=== PATIENT | male | born 1940 | race Caucasian/White ===

== ENCOUNTER 2021-11-01 15:00 | Inpatient (IN) ==
[2021-11-01] MEDS ORDERED: OPTIRAY 300 500mL IV ONE (15:18)
[2021-11-01 15:21] LABS: Basophils # (auto) 0.05 K/uL (0-0.2); Basophils % (auto) 0.6 %; Eosinophils # (auto) 0.41 K/uL (0-0.50); Eosinophils % (auto) 4.5 %; Hematocrit (blood only) 45.8 % (40.1-51.0); Hemoglobin 14.7 g/dl (14.0-18.0); Immature Granulocytes # (auto) 0.03 K/uL (0.00-0.02); Immature Granulocytes % (auto) 0.3 %; Lymphocytes # (auto) 0.95 K/uL (1.2-3.4); Lymphocytes % (auto) 10.5 %; Mean Corpuscular Hemoglobin 31.5 pg (25.0-34.0); Mean Corpuscular Hgb Conc 32.1 g/dL (32.0-36.0); Mean Corpuscular Volume 98.1 fL (80.0-100.0); Mean Platelet Volume 10.4 fL (9.4-12.4); Monocytes # (auto) 0.74 K/uL (0.24-0.82); Monocytes % (auto) 8.1 %; Platelet Count 341 K/uL (130-400); RDW Coefficient of Variation 14.3 % (11.5-14.5); RDW Standard Deviation 51.8 fL (36.4-46.3); Red Blood Count 4.67 M/uL (4.63-6.08); White Blood Count 9.08 K/ul (4.8-10.8)
--- NOTE | 2021-11-01 15:27 | Emergency Department Note ---
History of Present Illness General Chief complaint: Stroke/CVA Symptoms Stated complaint: neuro symptoms Time Seen by Provider: 11/01/21 15:04 History of Present Illness Provider complaint: Weakness Onset (ago): hour(s) (2.5) Location: upper extremity and right 81-year-old male presents emergency department for weakness. Her the EMS staff and son the patient started having weakness in his right upper extremity 2.5 hours ago. No falls. Patient is on Coumadin. The patient was vomiting yesterday. No headache. Home Medications Medication Instructions Recorded Confirmed Type atorvastatin 20 mg tablet 20 mg PO PM 03/17/18 11/01/21 History docusate sodium 100 mg capsule 100 mg PO BID PRN Constipation 03/17/18 11/01/21 History ([facility]ite) omega 4-hjq-oxw-fish oil 1,000 mg 1 cap PO DAILY 03/17/18 11/01/21 History (120 mg-180 mg) capsule (Fish Oil) polyethylene glycol 3350 17 gram 17 g PO DAILY PRN Constipation 03/17/18 11/01/21 History oral powder packet (Miralax) warfarin 5 mg tablet 5 mg PO UD 03/17/18 11/01/21 History amlodipine 10 mg tablet 10 mg PO DAILY 11/01/21 11/01/21 History losartan 50 mg tablet 50 mg PO DAILY 11/01/21 11/01/21 History Allergies Allergy/AdvReac Type Severity Reaction Status Date / Time No Known Allergies Allergy Verified 11/01/21 16:02 Past Med/Surg History Medical History (Updated 11/01/21 @ 21:56 by Raffy Mckinney) Aortic aneurysm HAS BEEN MONITORED FOR PAST 5 YEARS. PT ALSO FOLLOWS WITH [facility]. Atrial fibrillation MOST RECENT EKG 02/22/18 (SEE EMR) History of intestinal obstruction 2010. S/P BOWEL RESECTION. 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 [employer] Required: No Beliefs That Will Affect Care: None Current Living Situation: Spouse Current Living Situation Comment: with Feels Safe at Home: Yes Safety Concerns: Feels Safe At This Time Assistive Devices: Glasses and Hearing Aid - Bilateral Review of Systems A total of 10 systems reviewed and were otherwise negative Physical Exam Vital Signs Vital Signs - 24 hr 11/01/21 15:08 11/01/21 15:44 11/01/21 15:59 Temperature 36.7 C 36.5 C Temperature Source Oral Oral Pulse Rate 60 Pulse Rate [Finger] 56 L 55 L Pulse Rate from SpO2 Sensor Pulse Rhythm Regular Pulse Strength Normal Respiratory Rate 16 18 18 Respiratory Effort / Characteristics Non-Labored Respiratory Depth Normal Respiratory Pattern Regular Blood Pressure 153/67 H Blood Pressure [Left Arm] 184/85 H 162/76 H Blood Pressure Mean 95 Blood Pressure Mean [Left Arm] 118 104 Blood Pressure Position Lying Pulse Oximetry 97 98 98 Oxygen Delivery Method Room Air Room Air Room Air Sepsis Recent Fever Within 48 Hours No Sepsis New/Unexplained Change in Mental Status No Sepsis Action Taken by Nursing No Action Required 11/01/21 15:27 11/01/21 15:27 11/01/21 15:30 Temperature Temperature Source Pulse Rate Pulse Rate [Finger] Pulse Rate from SpO2 Sensor 54 L Pulse Rhythm Pulse Strength Respiratory Rate Respiratory Effort / Characteristics Respiratory Depth Respiratory Pattern Blood Pressure 189/84 H 184/85 H Blood Pressure [Left Arm] Blood Pressure Mean 119 118 Blood Pressure Mean [Left Arm] Blood Pressure Position Pulse Oximetry 98 Oxygen Delivery Method Sepsis Recent Fever Within 48 Hours Sepsis New/Unexplained Change in Mental Status Sepsis Action Taken by Nursing 11/01/21 15:30 11/01/21 15:40 11/01/21 15:50 Temperature Temperature Source Pulse Rate 54 L 52 L 49 L Pulse Rate [Finger] Pulse Rate from SpO2 Sensor 53 L 50 L 53 L Pulse Rhythm Pulse Strength Respiratory Rate Respiratory Effort / Characteristics Respiratory Depth Respiratory Pattern Blood Pressure Blood Pressure [Left Arm] Blood Pressure Mean Blood Pressure Mean [Left Arm] Blood Pressure Position Pulse Oximetry 98 98 98 Oxygen Delivery Method Sepsis Recent Fever Within 48 Hours Sepsis New/Unexplained Change in Mental Status Sepsis Action Taken by Nursing 11/01/21 15:59 11/01/21 15:59 11/01/21 16:00 Temperature Temperature Source Pulse Rate 50 L Pulse Rate [Finger] Pulse Rate from SpO2 Sensor Pulse Rhythm Pulse Strength Respiratory Rate Respiratory Effort / Characteristics Respiratory Depth Respiratory Pattern Blood Pressure 162/76 H 158/69 H Blood Pressure [Left Arm] Blood Pressure Mean 104 98 Blood Pressure Mean [Left Arm] Blood Pressure Position Pulse Oximetry Oxygen Delivery Method Sepsis Recent Fever Within 48 Hours Sepsis New/Unexplained Change in Mental Status Sepsis Action Taken by Nursing 11/01/21 16:00 11/01/21 16:10 11/01/21 16:20 Temperature Temperature Source Pulse Rate 55 L 44 L 44 L Pulse Rate [Finger] Pulse Rate from SpO2 Sensor 54 L 48 L 48 L Pulse Rhythm Pulse Strength Respiratory Rate 24 Respiratory Effort / Characteristics Respiratory Depth Respiratory Pattern Blood Pressure Blood Pressure [Left Arm] Blood Pressure Mean Blood Pressure Mean [Left Arm] Blood Pressure Position Pulse Oximetry 98 98 98 Oxygen Delivery Method Sepsis Recent Fever Within 48 Hours Sepsis New/Unexplained Change in Mental Status Sepsis Action Taken by Nursing 11/01/21 16:30 11/01/21 16:31 11/01/21 16:31 Temperature Temperature Source Pulse Rate 46 L 45 L Pulse Rate [Finger] Pulse Rate from SpO2 Sensor 44 L 47 L Pulse Rhythm Pulse Strength Respiratory Rate 25 H 20 Respiratory Effort / Characteristics Respiratory Depth Respiratory Pattern Blood Pressure 152/73 H Blood Pressure [Left Arm] Blood Pressure Mean 99 Blood Pressure Mean [Left Arm] Blood Pressure Position Pulse Oximetry 97 99 Oxygen Delivery Method Sepsis Recent Fever Within 48 Hours Sepsis New/Unexplained Change in Mental Status Sepsis Action Taken by Nursing Physical Exam GENERAL: She is oriented to person, place, and time. She appears well-developed and well-nourished. She does not appear distressed. HENT: Exam performed. -Head: Normocephalic and atraumatic. -Right Ear: External ear normal. No mastoid tenderness. -Left Ear: External ear normal. No mastoid tenderness. -Mouth/Throat: The oropharynx is clear and moist. No trismus in the jaw. No dental abscesses or uvula swelling. No oropharyngeal exudate or tonsillar absces ses. EYES: Conjunctivae and EOM are normal. Pupils are equal, round, and reactive to light. Right eye exhibits no discharge. Left eye exhibits no discharge. No scleral icterus. NECK: Normal range of motion. Neck supple. No JVD present. No spinous process tenderness present. No carotid bruit present. No rigidity. No tracheal deviation and normal range of motion present. No Brudzinski's sign and no Kernig's sign noted. CV: Normal rate, regular rhythm, normal heart sounds and intact distal pulses. There is no peripheral edema. Palpable radial pulses bue. PULM/CHEST: Effort normal and breath sounds normal. No respiratory distress. No stridor. She has no wheezes. She has no rales. -Chest Wall: She exhibits no tenderness. ABD: The abdomen is soft. Bowel sounds are normal. She has no distension. No mass is present. There is no tenderness. There is no rebound, no guarding, no Bee's sign and no tenderness at McBurney's point. Rovsig negative MUSC/SKEL: Normal range of motion. There is no peripheral edema, tenderness or deformity. LYMPH: No cervical adenopathy. NEURO:NIHSS: (5b: 3, 7:1, 10: 1) Course Course 1504: The patient was evaluated in room B10. A complete history and physical exam was performed Cardiac monitoring: An order was placed for continuous cardiac monitoring. The monitor shows a rate of 60 with sinus rhythm Stroke called on the patient. 1537: Discussed with Dr. Eric Awad telestroke will evaluate the patient. 1555: CT of the head CTA angio of head and neck negative. Patient's p [id number] INR 3. Lab INR 2.6. Discussed with Dr. Reyes who states she does not recommend vitamin K or TNK in this patient to be admitted. Administered Medications Atorvastatin Calcium (Atorvastatin 20 Mg Tab) 20 mg PO PM JORDAN Stop: 12/01/21 20:59 Last Admin: 11/01/21 20:46 Dose: 20 mg Documented By: QG Folic Acid 1 mg/ Syringe 10 mls @ 5 mls/min IV QAM JORDAN Stop: 12/01/21 18:59 Last Admin: 11/01/21 20:43 Dose: 5 mls/min Documented By: QG Thiamine HCl 100 mg/ Syringe 10 mls @ 2 mls/min IV QAM JORDAN Stop: 12/01/21 19:04 Last Admin: 11/01/21 20:42 Dose: 2 mls/min Documented By: QG Warfarin Sodium (Warfarin Sod 5 Mg Tab) 5 mg PO Q24H JORDAN Stop: 12/01/21 18:59 Last Admin: 11/01/21 20:44 Dose: 5 mg Documented By: SHERRY Medical Decision Making Laboratory Data Result diagrams: 11/01/21 15:11 11/01/21 15:11 Lab Results 11/01/21 11/01/21 11/01/21 Range/Units 15:09 15:11 15:11 WBC 9.08 (4.8-10.8) K/ul RBC 4.67 (4.63-6.08) M/uL Hgb 14.7 (14.0-18.0) g/dl Hct 45.8 (40.1-51.0) % MCV 98.1 (80.0-100.0) fL MCH 31.5 (25.0-34.0) pg MCHC 32.1 (32.0-36.0) g/dL RDW Std Deviation 51.8 H (36.4-46.3) fL RDW Coeff of Joo 14.3 (11.5-14.5) % Plt Count 341 (130-400) K/uL MPV 10.4 (9.4-12.4) fL Immature Gran % (Auto) 0.3 % Neut % (Auto) 76.0 % Lymph % (Auto) 10.5 % Webster % (Auto) 8.1 % Eos % (Auto) 4.5 % Baso % (Auto) 0.6 % Neut # (Auto) 6.90 H (1.4-6.5) K/uL Lymph # (Auto) 0.95 L (1.2-3.4) K/uL Webster # (Auto) 0.74 (0.24-0.82) K/uL Eos # (Auto) 0.41 (0-0.50) K/uL Baso # (Auto) 0.05 (0-0.2) K/uL Immature Gran # (Auto) 0.03 H (0.00-0.02) K/uL PT 26.6 H (9.0-12.0) Seconds INR 2.6 H (0.9-1.1) APTT 43.3 H (21.0-31.0) Seconds PTT Ratio 1.6 Sodium (136-145) mmol/L Potassium (3.5-5.1) mmol/L Chloride (98-107) mmol/L Carbon Dioxide (21-32) mmol/L Anion Gap (3-11) BUN (6-23) mg/dl Creatinine (0.6-1.4) mg/dl Est Cr Clr Drug Dosing ml/min Est GFR ( Amer) ml/min Est GFR (Non-Af Amer) ml/min BUN/Creatinine Ratio (10-20) Glucose (70-99(Fasting)) mg/dl POC Glucose 130 H (70-99) mg/dl Calcium (8.5-10.1) mg/dl Magnesium (1.7-2.4) mg/dl Total Bilirubin (0.2-1.0) mg/dl AST (13-39) U/L ALT (7-52) U/L Alkaline Phosphatase (34-104) U/L Troponin I High Sens (0-20) pg/ml Total Protein (6.0-8.3) gm/dl Albumin (3.4-5.0) gm/dl Globulin (2.5-4.0) gm/dl Albumin/Globulin Ratio (0.9-2) SARS-CoV-2, RNA, NAAT (NEGATIVE) Blood Type Antibody Screen 11/01/21 11/01/21 11/01/21 Range/Units 15:11 15:26 15:35 WBC (4.8-10.8) K/ul RBC (4.63-6.08) M/uL Hgb (14.0-18.0) g/dl Hct (40.1-51.0) % MCV (80.0-100.0) fL MCH (25.0-34.0) pg MCHC (32.0-36.0) g/dL RDW Std Deviation (36.4-46.3) fL RDW Coeff of Joo (11.5-14.5) % Plt Count (130-400) K/uL MPV (9.4-12.4) fL Immature Gran % (Auto) % Neut % (Auto) % Lymph % (Auto) % Webster % (Auto) % Eos % (Auto) % Baso % (Auto) % Neut # (Auto) (1.4-6.5) K/uL Lymph # (Auto) (1.2-3.4) K/uL Webster # (Auto) (0.24-0.82) K/uL Eos # (Auto) (0-0.50) K/uL Baso # (Auto) (0-0.2) K/uL Immature Gran # (Auto) (0.00-0.02) K/uL PT (9.0-12.0) Seconds INR (0.9-1.1) APTT (21.0-31.0) Seconds PTT Ratio Sodium 143 (136-145) mmol/L Potassium 3.9 (3.5-5.1) mmol/L Chloride 109 H (98-107) mmol/L Carbon Dioxide 27 (21-32) mmol/L Anion Gap 7 (3-11) BUN 31 H (6-23) mg/dl Creatinine 1.28 (0.6-1.4) mg/dl Est Cr Clr Drug Dosing 43.7 ml/min Est GFR ( Amer) 59.6 ml/min Est GFR (Non-Af Amer) 51.4 ml/min BUN/Creatinine Ratio 24.2 H (10-20) Glucose 112 H (70-99(Fasting)) mg/dl POC Glucose (70-99) mg/dl Calcium 9.8 (8.5-10.1) mg/dl Magnesium 2.1 (1.7-2.4) mg/dl Total Bilirubin 1.1 H (0.2-1.0) mg/dl AST 16 (13-39) U/L ALT 11 (7-52) U/L Alkaline Phosphatase 47 (34-104) U/L Troponin I High Sens 16.8 (0-20) pg/ml Total Protein 6.4 (6.0-8.3) gm/dl Albumin 4.0 (3.4-5.0) gm/dl Globulin 2.4 L (2.5-4.0) gm/dl Albumin/Globulin Ratio 1.7 (0.9-2) SARS-CoV-2, RNA, NAAT NEGATIVE (NEGATIVE) Blood Type A Positive Antibody Screen NEGATIVE Imaging Data Radiologist's Impression: Chest X-Ray 11/01/21 15:08 XR chest 1V portable CLINICAL HISTORY: Stroke Like Symptoms TECHNIQUE: Single frontal radiograph of the chest was obtained. Comparison: Comparison is made to chest radiograph 10/16/2010 FINDINGS: No lines and tubes are seen. Calcified aortic knob is seen. The lungs are clear. No evidence of pleural effusion or pneumothorax. IMPRESSION: No acute chest disease. ACT 112: Negative or not required by law. Electronically signed by: Adrián Leiva M.D. 11/01/2021 5:[address] 11/01/21 15:[address] OF THE BRAIN; CT ANGIOGRAM OF THE BRAIN; CT ANGIOGRAM OF THE NECK CLINICAL HISTORY: Strokelike symptoms. COMPARISON STUDY: No priors. TECHNIQUE: Unenhanced axial CT scan of the brain is performed. Subsequently, following the IV administration of 109 of Optiray 300, CT angiogram of the head and neck was performed from the aortic arch to the vertex. Images are reviewed in the axial, sagittal, and coronal planes. 3-D MIPS images are created and assessed. IV contrast was administered without complication. All measurements were calculated based on NASCET criteria. A dose lowering technique was utilized adhering to the principles of ALARA. CT DOSE: 1809.15 mGy.cm FINDINGS: Brain parenchyma: There is age-related involutional change noting moderate subcortical and periventricular microangiopathic disease. There is no hemorrhage, mass effect, or evidence of acute territorial ischemia by CT criteria. There is no evidence of enhancing mass lesion on the angiogram phase images. The ventricles, sulci, and cisterns are prominent secondary to change. Wood-white matter differentiation is preserved. No extra-axial fluid collection is seen. Thoracic aorta: There is atherosclerotic calcification of the thoracic aorta. Visualized portions of the thoracic aorta are normal in caliber. The aortic arch demonstrates standard 3-vessel anatomy. Right carotid arterial system: The right common carotid artery is widely patent, as is the right external carotid artery. There is advanced atherosclerotic plaque in the carotid bulb. There is approximately 50% focal stenosis of the proximal internal carotid artery located 1.8 cm above the bifurcation as seen on image #20 and 82. The mid and distal portions of the right internal carotid artery are patent. Left carotid arterial system: The left common carotid artery is widely patent, as are the left internal and external carotid arteries. Advanced calcified plaque is seen in the carotid bulb. Vertebral arteries: There is at least mild stenosis at the origin of the right vertebral artery. The vertebral arteries are otherwise widely patent bilaterally noting left-sided dominance. The right vertebral artery terminates as the PICA. Subclavian arteries: Widely patent bilaterally. Intracranial vasculature: There is atherosclerotic calcification of the cavernous carotid and vertebral arteries. The internal carotid arteries are patent at the skull base, as are the anterior and middle cerebral arteries bilaterally. There are large bilateral posterior communicating arteries comment origin of the left posterior cerebral artery. There is a diminutive right T1 segment. The right A1 segment is also diminutive. The vertebrobasilar system and posterior cerebral arteries are widely patent. The left vertebral artery is dominant. There is no aneurysm, high-grade stenosis, or focal vessel cut off seen throughout the intracranial circulation. Jugular veins: Patent bilaterally. Dural sinuses: Patent. Lung apices: Emphysematous change is noted in the upper lobes. Upper lobe lung parenchyma is otherwise clear as imaged. Soft tissues: The visualized pharyngeal soft tissues are normal in appearance noting angiographic phase technique. The oropharyngeal airway appears widely pat ent. The salivary and thyroid glands are normal in appearance. No cervical lymphadenopathy is seen. Skeletal structures: The skeletal structures are osteopenic. The calvarium appears intact. The cervical spine is maintained noting multilevel spondylosis. No lytic or blastic lesion is seen. Orbits: The bony orbits are intact. Orbital contents are normal as visualized. There are bilateral ocular lens implants. Sinuses and mastoids: There is complete opacification of the lungs maxillary sinus. Thickening and sclerosis of the sinus wall indicates chronicity. Mild mucosal thickening is noted in the left ethmoid sinuses, the frontal sinuses, in the right maxillary antrum. The mastoid air cells are well pneumatized. IMPRESSION: 1 There is no hemorrhage, mass effect, or evidence of acute territorial ischemia by CT criteria. 2. Unremarkable CT angiogram of the brain. 3. Atherosclerotic plaque causes approximately 50% focal stenosis of the proximal right internal carotid artery. 4. There is at least mild focal stenosis at the origin of the right vertebral artery. 5. Otherwise unremarkable CT angiogram of the neck. 6. Emphysema. 7. Paranasal sinus disease as above. ACT 112: Negative or not required by law. Electronically signed by: Wesley Villa M.D. 11/01/2021 3:38 PM Head CTA 11/01/21 15:[address] OF THE BRAIN; CT ANGIOGRAM OF THE BRAIN; CT ANGIOGRAM OF THE NECK CLINICAL HISTORY: Strokelike symptoms. COMPARISON STUDY: No priors. TECHNIQUE: Unenhanced axial CT scan of the brain is performed. Subsequently, following the IV administration of 109 of Optiray 300, CT angiogram of the head and neck was performed from the aortic arch to the vertex. Images are reviewed in the axial, sagittal, and coronal planes. 3-D MIPS images are created and assessed. IV contrast was administered without complication. All measurements were calculated based on NASCET criteria. A dose lowering technique was utilized adhering to the principles of ALARA. CT DOSE: 1809.15 mGy.cm FINDINGS: Brain parenchyma: There is age-related involutional change noting moderate phan bcortical and periventricular microangiopathic disease. There is no hemorrhage, mass effect, or evidence of acute territorial ischemia by CT criteria. There is no evidence of enhancing mass lesion on the angiogram phase images. The ventricles, sulci, and cisterns are prominent secondary to change. Wood-white matter differentiation is preserved. No extra-axial fluid collection is seen. Thoracic aorta: There is atherosclerotic calcification of the thoracic aorta. Visualized portions of the thoracic aorta are normal in caliber. The aortic arch demonstrates standard 3-vessel anatomy. Right carotid arterial system: The right common carotid artery is widely patent, as is the right external carotid artery. There is advanced atherosclerotic plaqu e in the carotid bulb. There is approximately 50% focal stenosis of the proximal internal carotid artery located 1.8 cm above the bifurcation as seen on image #20 and 82. The mid and distal portions of the right internal carotid artery are patent. Left carotid arterial system: The left common carotid artery is widely patent, as are the left internal and external carotid arteries. Advanced calcified plaque is seen in the carotid bulb. Vertebral arteries: There is at least mild stenosis at the origin of the right vertebral artery. The vertebral arteries are otherwise widely patent bilaterally noting left-sided dominance. The right vertebral artery terminates as the PICA. Subclavian arteries: Widely patent bilaterally. Intracranial vasculature: There is atherosclerotic calcification of the cavernous carotid and vertebral arteries. The internal carotid arteries are patent at the skull base, as are the anterior and middle cerebral arteries bilaterally. There are large bilateral posterior communicating arteries comment origin of the left posterior cerebral artery. There is a diminutive right T1 segment. The right A1 segment is also diminutive. The vertebrobasilar system and posterior cerebral arteries are widely patent. The left vertebral artery is dominant. There is no aneurysm, high-grade stenosis, or focal vessel cut off seen throughout the intracranial circulation. Jugular veins: Patent bilaterally. Dural sinuses: Patent. Lung apices: Emphysematous change is noted in the upper lobes. Upper lobe lung parenchyma is otherwise clear as imaged. Soft tissues: The visualized pharyngeal soft tissues are normal in appearance noting angiographic phase technique. The oropharyngeal airway appears widely patent. The salivary and thyroid glands are normal in appearance. No cervical lymphadenopathy is seen. Skeletal structures: The skeletal structures are osteopenic. The calvarium appears intact. The cervical spine is maintained noting multilevel spondylosis. No lytic or blastic lesion is seen. Orbits: The bony orbits are intact. Orbital contents are normal as visualized. There are bilateral ocular lens implants. Sinuses and mastoids: There is complete opacification of the lungs maxillary sinus. Thickening and sclerosis of the sinus wall indicates chronicity. Mild mucosal thickening is noted in the left ethmoid sinuses, the frontal sinuses, in the right maxillary antrum. The mastoid air cells are well pneumatized. IMPRESSION: 1 There is no hemorrhage, mass effect, or evidence of acute territorial ischemia by CT criteria. 2. Unremarkable CT angiogram of the brain. 3. Atherosclerotic plaque causes approximately 50% focal stenosis of the proximal right internal carotid artery. 4. There is at least mild focal stenosis at the origin of the right vertebral artery. 5. Otherwise unremarkable CT angiogram of the neck. 6. Emphysema. 7. Paranasal sinus disease as above. ACT 112: Negative or not required by law. Electronically signed by: Wesley Villa M.D. 11/01/2021 3:38 PM Neck CTA 11/01/21 15:[address] OF THE BRAIN; CT ANGIOGRAM OF THE BRAIN; CT ANGIOGRAM OF THE NECK CLINICAL HISTORY: Strokelike symptoms. COMPARISON STUDY: No priors. TECHNIQUE: Unenhanced axial CT scan of the brain is performed. Subsequently, following the IV administration of 109 of Optiray 300, CT angiogram of the head and neck was performed from the aortic arch to the vertex. Images are reviewed in the axial, sagittal, and coronal planes. 3-D MIPS images are created and assessed. IV contrast was administered without complication. All measurements were calculated based on NASCET criteria. A dose lowering technique was utilized adhering to the principles of ALARA. CT DOSE: 1809.15 mGy.cm FINDINGS: Brain parenchyma: There is age-related involutional change noting moderate subcortical and periventricular microangiopathic disease. There is no hemorrhage, mass effect, or evidence of acute territorial ischemia by CT criteria. There is no evidence of enhancing mass lesion on the angiogram phase images. The ventricles, sulci, and cisterns are prominent secondary to change. Wood-white matter differentiation is preserved. No extra-axial fluid collection is seen. Thoracic aorta: There is atherosclerotic calcification of the thoracic aorta. Visualized portions of the thoracic aorta are normal in caliber. The aortic arch demonstrates standard 3-vessel anatomy. Right carotid arterial system: The right common carotid artery is widely patent, as is the right external carotid artery. There is advanced atherosclerotic plaque in the carotid bulb. There is approximately 50% focal stenosis of the proximal internal carotid artery located 1.8 cm above the bifurcation as seen on image #20 and 82. The mid and distal portions of the right internal carotid artery are patent. Left carotid arterial system: The left common carotid artery is widely patent, as are the left internal and external carotid arteries. Advanced calcified plaque is seen in the carotid bulb. Vertebral arteries: There is at least mild stenosis at the origin of the right vertebral artery. The vertebral arteries are otherwise widely patent bilaterally noting left-sided dominance. The right vertebral artery terminates as the PICA. Subclavian arteries: Widely patent bilaterally. Intracranial vasculature: There is atherosclerotic calcification of the cavernous carotid and vertebral arteries. The internal carotid arteries are patent at the skull base, as are the anterior and middle cerebral arteries bilaterally. There are large bilateral posterior communicating arteries comment origin of the left posterior cerebral artery. There is a diminutive right T1 segment. The right A1 segment is also diminutive. The vertebrobasilar system and posterior cerebral arteries are widely patent. The left vertebral artery is dominant. There is no aneurysm, high-grade stenosis, or focal vessel cut off seen throughout the intracranial circulation. Jugular veins: Patent bilaterally. Dural sinuses: Patent. Lung apices: Emphysematous change is noted in the upper lobes. Upper lobe lung parenchyma is otherwise clear as imaged. Soft tissues: The visualized pharyngeal soft tissues are normal in appearance noting angiographic phase technique. The oropharyngeal airway appears widely patent. The salivary and thyroid glands are normal in appearance. No cervical lymphadenopathy is seen. Skeletal structures: The skeletal structures are osteopenic. The calvarium appears intact. The cervical spine is maintained noting multilevel spondylosis. No lytic or blastic lesion is seen. Orbits: The bony orbits are intact. Orbital contents are normal as visualized. There are bilateral ocular lens implants. Sinuses and mastoids: There is complete opacification of the lungs maxillary sinus. Thickening and sclerosis of the sinus wall indicates chronicity. Mild mucosal thickening is noted in the left ethmoid sinuses, the frontal sinuses, in the right maxillary antrum. The mastoid air cells are well pneumatized. IMPRESSION: 1 There is no hemorrhage, mass effect, or evidence of acute territorial ischemia by CT criteria. 2. Unremarkable CT angiogram of the brain. 3. Atherosclerotic plaque causes approximately 50% focal stenosis of the proximal right internal carotid artery. 4. There is at least mild focal stenosis at the origin of the right vertebral artery. 5. Otherwise unremarkable CT angiogram of the neck. 6. Emphysema. 7. Paranasal sinus disease as above. ACT 112: Negative or not required by law. Electronically signed by: Wesley Villa M.D. 11/01/2021 3:38 PM ECG Data Indication: + other (code stroke) Rate (beats per minute): 53 Rhythm: + atrial fibrillation ECG Intervals/blocks: + Normal QT-c ECG ST segments: + Normal ST segments MDM Narrative 1504: The patient was evaluated in room B10. A complete history and physical exam was performed Cardiac monitoring: An order was placed for continuous cardiac monitoring. The monitor shows a rate of 60 with sinus rhythm Stroke called on the patient. 1537: Discussed with Dr. Eric Awad telestroke will evaluate the patient. 1555: CT of the head CTA angio of head and neck negative. Patient's [id number] INR 3. Lab INR 2.6. Discussed with Dr. Reyes who states she does not recommend vitamin K or TNK in this patient to be admitted. Impression & Plan Cerebrovascular accident Discharge Plan Visit Data Chief Complaint: Stroke/CVA Symptoms Stated Complaint: neuro symptoms ED Provider: Raffy Mckinney Discharge Problem: Cerebrovascular accident Patient Disposition: Admitted As Inpatient Discharge Instructions Interventions: ED Discharge Assessment Last Done: 11/01/21 18:03
--- NOTE | 2021-11-01 15:40 | CT Scan Report ---
UNENHANCED CT OF THE BRAIN; CT ANGIOGRAM OF THE BRAIN; CT ANGIOGRAM OF THE NECK CLINICAL HISTORY: Strokelike symptoms. COMPARISON STUDY: No priors. TECHNIQUE: Unenhanced axial CT scan of the brain is performed. Subsequently, following the IV adminis tration of 109 of [employer] 300, CT angiogram of the head and neck was performed from the aortic arch t o the vertex. Images are reviewed in the axial, sagittal, and coronal planes. 3-D MIPS images are cre ated and assessed. IV contrast was administered without complication. All measurements were calculate d based on NASCET criteria. A dose lowering technique was utilized adhering to the principles of ALA RA. CT DOSE: 1809.15 mGy.cm FINDINGS: Brain parenchyma: There is age-related involutional change noting moderate subcortical and periventri cular microangiopathic disease. There is no hemorrhage, mass effect, or evidence of acute territorial ischemia by CT criteria. There is no evidence of enhancing mass lesion on the angiogram phase images . The ventricles, sulci, and cisterns are prominent secondary to change. Wood-white matter differenti ation is preserved. No extra-axial fluid collection is seen. Thoracic aorta: There is atherosclerotic calcification of the thoracic aorta. Visualized portions of the thoracic aorta are normal in caliber. The aortic arch demonstrates standard 3-vessel anatomy. Right carotid arterial system: The right common carotid artery is widely patent, as is the right exte rnal carotid artery. There is advanced atherosclerotic plaque in the carotid bulb. There is approxima tely 50% focal stenosis of the proximal internal carotid artery located 1.8 cm above the bifurcation as seen on image #20 and 82. The mid and distal portions of the right internal carotid artery are pat ent. Left carotid arterial system: The left common carotid artery is widely patent, as are the left program management intern al and external carotid arteries. Advanced calcified plaque is seen in the carotid bulb. Vertebral arteries: There is at least mild stenosis at the origin of the right vertebral artery. The vertebral arteries are otherwise widely patent bilaterally noting left-sided dominance. The right joan tebral artery terminates as the PICA. Subclavian arteries: Widely patent bilaterally. Intracranial vasculature: There is atherosclerotic calcification of the cavernous carotid and vertebr al arteries. The internal carotid arteries are patent at the skull base, as are the anterior and midd le cerebral arteries bilaterally. There are large bilateral posterior communicating arteries comment origin of the left posterior cerebral artery. There is a diminutive right T1 segment. The right A1 segment is also diminutive. The vertebrobasilar system and posterior cerebral arteries are widely patent. The left vertebral artery is dominant. There is no aneurysm, high-grade stenosis, or focal v essel cut off seen throughout the intracranial circulation. Jugular veins: Patent bilaterally. Dural sinuses: Patent. Lung apices: Emphysematous change is noted in the upper lobes. Upper lobe lung parenchyma is otherwis e clear as imaged. Soft tissues: The visualized pharyngeal soft tissues are normal in appearance noting angiographic pha se technique. The oropharyngeal airway appears widely patent. The salivary and thyroid glands are nor mal in appearance. No cervical lymphadenopathy is seen. Skeletal structures: The skeletal structures are osteopenic. The calvarium appears intact. The cervic al spine is maintained noting multilevel spondylosis. No lytic or blastic lesion is seen. Orbits: The bony orbits are intact. Orbital contents are normal as visualized. There are bilateral oc ular lens implants. Sinuses and mastoids: There is complete opacification of the lungs maxillary sinus. Thickening and sc lerosis of the sinus wall indicates chronicity. Mild mucosal thickening is noted in the left ethmoid sinuses, the frontal sinuses, in the right maxillary antrum. The mastoid air cells are well pneumatiz ed. IMPRESSION: 1 There is no hemorrhage, mass effect, or evidence of acute territorial ischemia by CT criteria. 2. Unremarkable CT angiogram of the brain. 3. Atherosclerotic plaque causes approximately 50% focal stenosis of the proximal right internal ramsey tid artery. 4. There is at least mild focal stenosis at the origin of the right vertebral artery. 5. Otherwise unremarkable CT angiogram of the neck. 6. Emphysema. 7. Paranasal sinus disease as above. ACT 112: Negative or not required by law. Electronically signed by: Wesley Villa M.D. 11/01/2021 3:38 PM
[2021-11-01 15:43] LABS: INR 2.6 (0.9-1.1); Partial Thromboplastin Ratio 1.6; Partial Thromboplastin Time 43.3 Seconds (21.0-31.0); Prothrombin Time 26.6 Seconds (9.0-12.0)
[2021-11-01 15:50] LABS: Troponin I High Sensitivity 16.8 pg/ml (0-20)
[2021-11-01 16:06] LABS: Albumin Globulin Ratio 1.7 (0.9-2); BUN Creatinine Ratio 24.2 (10-20); Bilirubin,Total 1.1 mg/dl (0.2-1.0); Calcium 9.8 mg/dl (8.5-10.1); Creatinine Clr Calc Pharmacy 43.7 ml/min; Est GFR (African American) 59.6 ml/min; Est GFR (Non-African American) 51.4 ml/min; Globulin 2.4 gm/dl (2.5-4.0); Magnesium 2.1 mg/dl (1.7-2.4); Potassium 3.9 mmol/L (3.5-5.1); Total Protein 6.4 gm/dl (6.0-8.3)
--- NOTE | 2021-11-01 17:08 | History & Physical Report ---
Date of Service November 01, 2021 Assessment & Plan (1) Stroke-like symptoms: (2) Weakness: (3) HTN (hypertension): (4) HLD (hyperlipidemia): (5) Paroxysmal atrial fibrillation: Plan Mr. Elise started to experience RUE weakness and an episode of vomiting this morning. A head/Neck CTA done: 50% focal stenosis of the proximal right internal carotid artery. Mild focal stenosis at the origin of the right vertebral artery. Symptoms appear to have resolved, aside from some favoring of his left hand vs right. Stroke orderset in place. Neurology to see pt. Stroke-Like Symptoms Weakness: Stroke Alert called 1504: The patient was evaluated in room B10. A complete history and physical exam was performed Cardiac monitoring: An order was placed for continuous cardiac monitoring. The monitor shows a rate of 60 with sinus rhythm Stroke called on the patient. 1537: Discussed with Dr. Eric Awad telestroke will evaluate the patient. 1555: CT of the head CTA angio of head and neck negative. ED physician discussed with Dr. Reyes who states she does not recommend vitamin K or TNK in this patient. head/Neck CTA done: 50% focal stenosis of the proximal right internal carotid artery. Mild focal stenosis at the origin of the right vertebral artery. Stroke order set in place; Neurology consult placed. Pt smokes 2PPD cigarettes ECHO ordered MRI without contrast ordered NPO for now HTN: stable; Continue Amlodipine and [place] HLD: stable; continue atorvastatin last lipid panel was 2020; will recheck in AM Alcohol Use: Pt drinks 3-4 glasses of wine daily. Last glass 24 hours ago. AWSS scale ordered Will ensure IV vitamin replacement. pAF: On Couamdin; goal 2-3 Today, INR 2.6; will trend in AM Disposition: PCP: Dr. Higinio Hackett Code Status: Full Code Next of Kin: Jackie Elise VTE Prophylaxis: on Coumadin History of Present Illness Chief Complaint: weakness Primary Care Provider: Shaan Kim DO Mr. Elise started to experience RUE weakness and an episode of vomiting this morning and his called their son, who called EMS. The patient has some confusion and is a poor historian. His son, Tejas, is at the bedside who reports t hat his speech has slurred subtly with left-sided facial drooping. Pt reports smoking 2ppd x 20 years and reports drinking wine 3-4 glasses daily. Pt denies recreational drug use. Patient has a PMH that includes: paroxysmal atrial fibrillation (on Coumadin), HTN, HLD, and cognitive loss over the past year, and others. A stroke alert was called. ED discussed with Dr. Reyes who was on for [place] telestroke. ED physician discussed with Dr. Reyes who states she does not recommend vitamin K or TNK in this patient. A head/Neck CTA done: 50% focal stenosis of the proximal right internal carotid artery. Mild focal stenosis at the origin of the right vertebral artery. Pt denies [place], dizziness, CP, palpitation, N/V/D, skin changes, sore throat, cough, urinary changes. Please see A/P for further details. Patient will be admitted for further evaluation and management. Please see A/P for further details. Allergies Allergy/AdvReac Type Severity Reaction Status Date / Time No Known Allergies Allergy Verified 11/01/21 16:02 Home Medications Medication Instructions Recorded Confirmed Type atorvastatin 20 mg tablet 20 mg PO PM 03/17/18 11/01/21 History docusate sodium 100 mg capsule 100 mg PO BID PRN Constipation 03/17/18 11/01/21 History (Col-Rite) omega 3-dul-jaw-fish oil 1,000 mg 1 cap PO DAILY 03/17/18 11/01/21 History (120 mg-180 mg) capsule (Fish Oil) polyethylene glycol 3350 17 gram 17 g PO DAILY PRN Constipation 03/17/1811/14 History oral powder packet (Miralax) warfarin 5 mg tablet 5 mg PO UD 03/17/18 11/01/21 History amlodipine 10 mg tablet 10 mg PO DAILY 11/01/21 11/01/21 History losartan 50 mg tablet 50 mg PO DAILY 11/01/21 11/01/21 History Past Med/Surg History Medical History (Updated 11/01/21 @ 17:14 by LISA Lyles) Aortic aneurysm HAS BEEN MONITORED FOR PAST 5 YEARS. PT ALSO FOLLOWS WITH [facility]. Atrial fibrillation MOST RECENT EKG 02/22/18 (SEE EMR) History of intestinal obstruction 2010. S/P BOWEL RESECTION. HLD (hyperlipidemia) HTN (hypertension) Hypertension Paroxysmal atrial fibrillation Stroke-like symptoms Weakness Surgical History History of bowel resection History of cataract extraction with lens replacement B/L Social History Smoking Status: Current every day smoker Cigarettes Per Day: SOCIAL CIGARETTE FOR PAST 7 YEARS; Second Hand Exposure: No; Hx Alcohol Use: Yes Alcohol type: wine Hx Substance Use: No Preferred Language: Estonian Communication Ability: Effective Interlibrary Loan Specialist Required: No Beliefs That Will Affect Care: None Current Living Situation: Spouse Feels Safe at Home: Yes Assistive Devices: Glasses and Hearing Aid - Bilateral Review of Systems Review of Systems: Neuro: (-) Falls, trauma, slurred speech HEENT: (-) [place], dizziness, dysphagia, visual or auditory changes CV: (-) CP, palpitations, swelling Resp: (-) SOB GI: (-) appetite changes, N/V/D, bowel changes : (-) urinary changes Skin: (-) rashes Psych: (-) anxiety, depression Physical Exam Physical Exam: physical exam performed by Dr. Alarcon Results & Data Results & Data ([facility]) Vital Signs (Past 12 Hours) Vital Signs Temp Pulse Pulse Resp BP BP Pulse Ox 11/01/21 16:31 152/73 H 11/01/21 16:31 45 L 20 99 11/01/21 16:30 46 L 25 H 97 11/01/21 16:20 44 L 24 98 11/01/21 16:10 44 L 98 11/01/21 16:00 55 L 98 11/01/21 16:00 158/69 H 11/01/21 15:59 50 L 11/01/21 15:59 162/76 H 11/01/21 15:50 49 L 98 11/01/21 15:40 52 L 98 11/01/21 15:30 54 L 98 11/01/21 15:30 184/85 H 11/01/21 15:27 98 11/01/21 15:27 189/84 H 11/01/21 15:59 36.5 C 55 L 18 162/76 H 98 11/01/21 15:44 56 L 18 184/85 H 98 11/01/21 15:08 36.7 C 60 16 153/67 H 97 O2 Del Method 11/01/21 16:31 11/01/21 16:31 11/01/21 16:30 11/01/21 16:20 11/01/21 16:10 11/01/21 16:00 11/01/21 16:00 11/01/21 15:59 11/01/21 15:59 11/01/21 15:50 11/01/21 15:40 11/01/21 15:30 11/01/21 15:30 11/01/21 15:27 11/01/21 15:27 11/01/21 15:59 Room Air 11/01/21 15:44 Room Air 11/01/21 15:08 Room Air Laboratory Results Short CBC 11/01/21 Range/Units 15:11 WBC 9.08 (4.8-10.8) K/ul Hgb 14.7 (14.0-18.0) g/dl Hct 45.8 (40.1-51.0) % Plt Count 341 (130-400) K/uL BMP 11/01/21 15:11 Sodium 143 Potassium 3.9 Chloride 109 H Carbon Dioxide 27 BUN 31 H Creatinine 1.28 Glucose 112 H Calcium 9.8 Liver Function 11/01/21 Range/Units 15:11 Total Bilirubin 1.1 H (0.2-1.0) mg/dl AST 16 (13-39) U/L ALT 11 (7-52) U/L Alkaline Phosphatase 47 (34-104) U/L Albumin 4.0 (3.4-5.0) gm/dl Diagnostic Findings Head CT 11/01/21 15:[address] OF THE BRAIN; CT ANGIOGRAM OF THE BRAIN; CT ANGIOGRAM OF THE NECK CLINICAL HISTORY: Strokelike symptoms. COMPARISON STUDY: No priors. TECHNIQUE: Unenhanced axial CT scan of the brain is performed. Subsequently, following the IV administration of 109 of Optiray 300, CT angiogram of the head and neck was performed from the aortic arch to the vertex. Images are reviewed in the axial, sagittal, and coronal planes. 3-D MIPS images are created and assessed. IV contrast was administered without complication. All measurements were calculated based on NASCET criteria. A dose lowering technique was utilized adhering to the principles of ALARA. CT DOSE: 1809.15 mGy.cm FINDINGS: Brain parenchyma: There is age-related involutional change noting moderate subcortical and periventricular microangiopathic disease. There is no hemorrhage, mass effect, or evidence of acute territorial ischemia by CT criteria. There is no evidence of enhancing mass lesion on the angiogram phase images. The ventricles, sulci, and cisterns are prominent secondary to change. Wood-white matter differentiation is preserved. No extra-axial fluid collection is seen. Thoracic aorta: There is atherosclerotic calcification of the thoracic aorta. Visualized portions of the thoracic aorta are normal in caliber. The aortic arch demonstrates standard 3-vessel anatomy. Right carotid arterial system: The right common carotid artery is widely patent, as is the right external carotid artery. There is advanced atherosclerotic plaque in the carotid bulb. There is approximately 50% focal stenosis of the proximal internal carotid artery located 1.8 cm above the bifurcation as seen on image #20 and 82. The mid and distal portions of the right internal carotid artery are patent. Left carotid arterial system: The left common carotid artery is widely patent, a s are the left internal and external carotid arteries. Advanced calcified plaque is seen in the carotid bulb. Vertebral arteries: There is at least mild stenosis at the origin of the right vertebral artery. The vertebral arteries are otherwise widely patent bilaterally noting left-sided dominance. The right vertebral artery terminates as the PICA. Subclavian arteries: Widely patent bilaterally. Intracranial vasculature: There is atherosclerotic calcification of the cavernous carotid and vertebral arteries. The internal carotid arteries are patent at the skull base, as are the anterior and middle cerebral arteries bilaterally. There are large bilateral posterior communicating arteries comment origin of the left posterior cerebral artery. There is a diminutive right T1 segment. The right A1 segment is also diminutive. The vertebrobasilar system and posterior cerebral arteries are widely patent. The left vertebral artery is dominant. There is no aneurysm, high-grade stenosis, or focal vessel cut off seen throughout the intracranial circulation. Jugular veins: Patent bilaterally. Dural sinuses: Patent. Lung apices: Emphysematous change is noted in the upper lobes. Upper lobe lung parenchyma is otherwise clear as imaged. Soft tissues: The visualized pharyngeal soft tissues are normal in appearance noting angiographic phase technique. The oropharyngeal airway appears widely patent. The salivary and thyroid glands are normal in appearance. No cervical lymphadenopathy is seen. Skeletal structures: The skeletal structures are osteopenic. The calvarium appears intact. The cervical spine is maintained noting multilevel spondylosis. No lytic or blastic lesion is seen. Orbits: The bony orbits are intact. Orbital contents are normal as visualized. There are bilateral ocular lens implants. Sinuses and mastoids: There is complete opacification of the lungs maxillary sinus. Thickening and sclerosis of the sinus wall indicates chronicity. Mild mucosal thickening is noted in the left ethmoid sinuses, the frontal sinuses, in the right maxillary antrum. The mastoid air cells are well pneumatized. IMPRESSION: 1 There is no hemorrhage, mass effect, or evidence of acute territorial ischemia by CT criteria. 2. Unremarkable CT angiogram of the brain. 3. Atherosclerotic plaque causes approximately 50% focal stenosis of the proximal right internal carotid artery. 4. There is at least mild focal stenosis at the origin of the right vertebral artery. 5. Otherwise unremarkable CT angiogram of the neck. 6. Emphysema. 7. Paranasal sinus disease as above. ACT 112: Negative or not required by law. Electronically signed by: Wesley Villa M.D. 11/01/2021 3:38 PM Head CTA 11/01/21 15:[address] OF THE BRAIN; CT ANGIOGRAM OF THE BRAIN; CT ANGIOGRAM OF THE NECK CLINICAL HISTORY: Strokelike symptoms. COMPARISON STUDY: No priors. TECHNIQUE: Unenhanced axial CT scan of the brain is performed. Subsequently, following the IV administration of 109 of Optiray 300, CT angiogram of the head and neck was performed from the aortic arch to the vertex. Images are reviewed in the axial, sagittal, and coronal planes. 3-D MIPS images are created and assessed. IV contrast was administered without complication. All measurements were calculated based on NASCET criteria. A dose lowering technique was utilized adhering to the principles of ALARA. CT DOSE: 1809.15 mGy.cm FINDINGS: Brain parenchyma: There is age-related involutional change noting moderate subcortical and periventricular microangiopathic disease. There is no hemorrhage, mass effect, or evidence of acute territorial ischemia by CT criteria. There is no evidence of enhancing mass lesion on the angiogram phase images. The ventricles, sulci, and cisterns are prominent secondary to change. Wood-white matter differentiation is preserved. No extra-axial fluid collection is seen. Thoracic aorta: There is atherosclerotic calcification of the thoracic aorta. Visualized portions of the thoracic aorta are normal in caliber. The aortic arch demonstrates standard 3-vessel anatomy. Right carotid arterial system: The right common carotid artery is widely patent, as is the right external carotid artery. There is advanced atherosclerotic plaque in the carotid bulb. There is approximately 50% focal stenosis of the proximal internal carotid artery located 1.8 cm above the bifurcation as seen on image #20 and 82. The mid and distal portions of the right internal carotid artery are patent. Left carotid arterial system: The left common carotid artery is widely patent, as are the left internal and external carotid arteries. Advanced calcified plaque is seen in the carotid bulb. Vertebral arteries: There is at least mild stenosis at the origin of the right vertebral artery. The vertebral arteries are otherwise widely patent bilaterally noting left-sided dominance. The right vertebral artery terminates as the PICA. Subclavian arteries: Widely patent bilaterally. Intracranial vasculature: There is atherosclerotic calcification of the cavernous carotid and vertebral arteries. The internal carotid arteries are pat ent at the skull base, as are the anterior and middle cerebral arteries bilaterally. There are large bilateral posterior communicating arteries comment origin of the left posterior cerebral artery. There is a diminutive right T1 segment. The right A1 segment is also diminutive. The vertebrobasilar system and posterior cerebral arteries are widely patent. The left vertebral artery is dominant. There is no aneurysm, high-grade stenosis, or focal vessel cut off seen throughout the intracranial circulation. Jugular veins: Patent bilaterally. Dural sinuses: Patent. Lung apices: Emphysematous change is noted in the upper lobes. Upper lobe lung parenchyma is otherwise clear as imaged. Soft tissues: The visualized pharyngeal soft tissues are normal in appearance noting angiographic phase technique. The oropharyngeal airway appears widely patent. The salivary and thyroid glands are normal in appearance. No cervical lymphadenopathy is seen. Skeletal structures: The skeletal structures are osteopenic. The calvarium appears intact. The cervical spine is maintained noting multilevel spondylosis. No lytic or blastic lesion is seen. Orbits: The bony orbits are intact. Orbital contents are normal as visualized. There are bilateral ocular lens implants. Sinuses and mastoids: There is complete opacification of the lungs maxillary sinus. Thickening and sclerosis of the sinus wall indicates chronicity. Mild mucosal thickening is noted in the left ethmoid sinuses, the frontal sinuses, in the right maxillary antrum. The mastoid air cells are well pneumatized. IMPRESSION: 1 There is no hemorrhage, mass effect, or evidence of acute territorial ischemia by CT criteria. 2. Unremarkable CT angiogram of the brain. 3. Atherosclerotic plaque causes approximately 50% focal stenosis of the proximal right internal carotid artery. 4. There is at least mild focal stenosis at the origin of the right vertebral artery. 5. Otherwise unremarkable CT angiogram of the neck. 6. Emphysema. 7. Paranasal sinus disease as above. ACT 112: Negative or not required by law. Electronically signed by: Wesley Villa M.D. 11/01/2021 3:38 PM Neck CTA 11/01/21 15:[address] OF THE BRAIN; CT ANGIOGRAM OF THE BRAIN; CT ANGIOGRAM OF THE NECK CLINICAL HISTORY: Strokelike symptoms. COMPARISON STUDY: No priors. TECHNIQUE: Unenhanced axial CT scan of the brain is performed. Subsequently, following the IV administration of 109 of Optiray 300, CT angiogram of the head and neck was performed from the aortic arch to the vertex. Images are reviewed in the axial, sagittal, and coronal planes. 3-D MIPS images are created and assessed. IV contrast was administered without complication. All measurements were calculated based on NASCET criteria. A dose lowering technique was utilized adhering to the principles of ALARA. CT DOSE: 1809.15 mGy.cm FINDINGS: Brain parenchyma: There is age-related involutional change noting moderate subcortical and periventricular microangiopathic disease. There is no hemorrhage, mass effect, or evidence of acute territorial ischemia by CT criteria. There is no evidence of enhancing mass lesion on the angiogram phase images. The ventricles, sulci, and cisterns are prominent secondary to change. Wood-white matter differentiation is preserved. No extra-axial fluid collection is seen. Thoracic aorta: There is atherosclerotic calcification of the thoracic aorta. Visualized portions of the thoracic aorta are normal in caliber. The aortic arch demonstrates standard 3-vessel anatomy. Right carotid arterial system: The right common carotid artery is widely patent, as is the right external carotid artery. There is advanced atherosclerotic plaque in the carotid bulb. There is approximately 50% focal stenosis of the proximal internal carotid artery located 1.8 cm above the bifurcation as seen on image #20 and 82. The mid and distal portions of the right internal carotid artery are patent. Left carotid arterial system: The left common carotid artery is widely patent, as are the left internal and external carotid arteries. Advanced calcified plaque is seen in the carotid bulb. Vertebral arteries: There is at least mild stenosis at the origin of the right vertebral artery. The vertebral arteries are otherwise widely patent bilaterally noting left-sided dominance. The right vertebral artery terminates as the PICA. Subclavian arteries: Widely patent bilaterally. Intracranial vasculature: There is atherosclerotic calcification of the cavernous carotid and vertebral arteries. The internal carotid arteries are patent at the skull base, as are the anterior and middle cerebral arteries bilaterally. There are large bilateral posterior communicating arteries comment origin of the left posterior cerebral artery. There is a diminutive right T1 segment. The right A1 segment is also diminutive. The vertebrobasilar system and posterior cerebral arteries are widely patent. The left vertebral artery is dominant. There is no aneurysm, high-grade stenosis, or focal vessel cut off seen throughout the intracranial circulation. Jugular veins: Patent bilaterally. Dural sinuses: Patent. Lung apices: Emphysematous change is noted in the upper lobes. Upper lobe lung parenchyma is otherwise clear as imaged. Soft tissues: The visualized pharyngeal soft tissues are normal in appearance noting angiographic phase technique. The oropharyngeal airway appears widely patent. The salivary and thyroid glands are normal in appearance. No cervical lymphadenopathy is seen. Skeletal structures: The skeletal structures are osteopenic. The calvarium appears intact. The cervical spine is maintained noting multilevel spondylosis. No lytic or blastic lesion is seen. Orbits: The bony orbits are intact. Orbital contents are normal as visualized. There are bilateral ocular lens implants. Sinuses and mastoids: There is complete opacification of the lungs maxillary s inus. Thickening and sclerosis of the sinus wall indicates chronicity. Mild mucosal thickening is noted in the left ethmoid sinuses, the frontal sinuses, in the right maxillary antrum. The mastoid air cells are well pneumatized. IMPRESSION: 1 There is no hemorrhage, mass effect, or evidence of acute territorial ischemia by CT criteria. 2. Unremarkable CT angiogram of the brain. 3. Atherosclerotic plaque causes approximately 50% focal stenosis of the proximal right internal carotid artery. 4. There is at least mild focal stenosis at the origin of the right vertebral artery. 5. Otherwise unremarkable CT angiogram of the neck. 6. Emphysema. 7. Paranasal sinus disease as above. ACT 112: Negative or not required by law. Electronically signed by: Wesley Villa M.D. 11/01/2021 3:38 PM Code Status & VTE Plan Code Status Full Code in the event of cardiac or respiratory arrest VTE Prophylaxis Plan VTE Prophylaxis will be ordered: Yes Supervising Physician Co-Signing Physician Notes 81-year-old male with PMH of HTN, HLD, thoracic aortic aneurysm, asymptomatic bilateral carotid artery stenosis, paroxysmal A. fib, constipation, CKD stage III a presented to our ED 11/01 with strokelike symptoms. Patient relapsed into smoking 20 years ago, uses 2 packs a day on average, drinks 3 to 4 glasses of wine almost daily, denies recreational drug use. Patient was alert and oriented x1, hence most history taken from patient were either confirmed with patient's son present at bedside [Tejas] or are taken from chart review. Patient apparently had " bad stomach" yesterday and vomited last night, was feeling " poorly" in the morning and hence scheduled a doctor's appointment today in the morning. While he was getting dressed he took half an hour and was noted to have right upper arm weakness and "wobbly walk" by his , slight left facial droop and some slurring of his speech was also noted earlier today by his son which were not present at bedside exam per him. Also his son reports that his right upper arm weakness has improved during our exam. Patient denies any headache/dizziness/sore throat/cough/fever/chills/acute changes in his bowel or bladder habit. Patient does not feel sick in his stomach or nauseous or vomiting. Telestroke was complicated by ED per records and appreciate recommendation. Pt was directed from his PCP office to ED for stroke like symptoms. No fall or head trauma. Patient on Coumadin and INR therapeutic. Labs reviewed, electrolytes WNL, INR 2.6, CTA head and neck and CT head with no new acute findings, atherosclerotic plaque with 50% focal stenosis of the proximal right ICA. Admitting EKG with A. fib with SVR. Stroke protocol, lipid and A1c in a.m., echo, MRI brain, PT/OT, speech eval, neurology consult, neurochecks, Permissive HTN, hold home BP meds. Upon Exam: GENERAL: Alert and oriented x1. NAD, on RA. TRIBAL HEENT: No pallor, no icterus. Pupils equal, round and reactive to light. Oral mucosa moist. NECK: No JVD, no neck masses. HEART: S1 and S2 heard. Regular rate and rhythm. No murmur, no gallop. RESPIRATORY SYSTEM: Normal AP diameter. No accessory muscle use. No wheezing, no crackles. ABDOMEN: Soft, bowel sounds present, nontender, no distention. CENTRAL NERVOUS SYSTEM: No facial droop. Speech is clear. Obeys simple commands. Moves extremities. Power nl all extremities but LUE preference >>>>RUE. EXTREMITIES: No edema, no erythema seen. I have seen and examined the patient and have discussed the case with the provider above. I agree with the assessment and plan as stated.
--- NOTE | 2021-11-01 17:14 | XRay Report ---
XR chest 1V portable CLINICAL HISTORY: Stroke Like Symptoms TECHNIQUE: Single frontal radiograph of the chest was obtained. Comparison: Comparison is made to chest radiograph 10/16/2010 FINDINGS: No lines and tubes are seen. Calcified aortic knob is seen. The lungs are clear. No evidence of pleur al effusion or pneumothorax. IMPRESSION: No acute chest disease. ACT 112: Negative or not required by law. Electronically signed by: Adrián Leiva M.D. 11/01/2021 5:13 PM
[2021-11-01] MEDS ORDERED: PHARMACIST DISCHARGE MED REC CONSULT PRN (18:24)
[2021-11-01] MEDS ORDERED: POLYETHYLENE (MIRALAX) 17 GM PACK PO PRN (18:24)
[2021-11-01] MEDS ORDERED: DOCUSATE SODIUM 100 MG CAP PO PRN (18:24)
[2021-11-01] MEDS ORDERED: LORazepam 1 MG in SYRINGE 0.5 ML IV PRN (18:36)
[2021-11-01] MEDS ORDERED: WARFARIN SOD 5 MG TAB PO SCH (19:00)
[2021-11-01] MEDS: THIAMINE HCL 100 MG in SYRINGE 9 ML IV SCH (20:42)
[2021-11-01] MEDS: FOLIC ACID 1 MG in SYRINGE 9.8 ML IV SCH (20:43)
[2021-11-01] MEDS: ATORVASTATIN 20 MG TAB PO SCH (20:46)
--- NOTE | 2021-11-01 21:57 | Electrocardiogram Report ---
Test Reason : Blood Pressure : / mmHG Vent. Rate : 053 BPM Atrial Rate : 084 BPM P-R Int : 000 ms QRS Dur : 132 ms QT Int : 470 ms P-R-T Axes : 000 -60 096 degrees QTc Int : 441 ms Poor data quality, interpretation may be adversely affected Atrial fibrillation with slow ventricular response Left axis deviation Left ventricular hypertrophy with QRS widening T wave abnormality, consider lateral ischemia Abnormal ECG When compared with ECG of 14-OCT-2010 04:15, Atrial fibrillation has replaced Sinus rhythm QRS duration has increased Confirmed by Linus Porter ([id number]) on 11/01/2021 9:57:12 PM Referred By: Confirmed By:Linus Porter
--- NOTE | 2021-11-01 23:17 | Magnetic Resonance Report ---
MR brain wo con HISTORY: 81 years-old Male stroke like symptoms acute nausea with vomiting and strokelike symptoms COMPARISON: CT head, CTA head and neck studies of same day TECHNIQUE: Multiplanar multisequence MRI of the brain was obtained without the use of IV contrast. FINDINGS: Junior Underwriter localizer images demonstrate no gross extracranial abnormality. Study is motion degraded. Very few scattered foci of restricted diffusion involving the left frontal and parietal lobes. The largest focus within the anterior left frontal lobe measures 1.6 cm and the largest focus within the left pa rietal lobe measures 2.1 cm. These areas demonstrate intermediate to decreased signal on ADC map. The left frontal lobe. This demonstrates increased T2/FLAIR signal. No acute or subacute territorial inf arct. Midline structures are unremarkable. Degenerative changes of the cervical spine. Partially empt y sella. No acute intracranial hemorrhage, midline shift, abnormal extra-axial collection, hydrocephalus or in tracranial mass. Age-related involutional changes. Moderate to extensive T2/FLAIR hyperintense foci n oted throughout the white matter. Cerebral venous sinuses and major arterial flow voids appear genera lly patent. Prior bilateral lens repair. The skull and soft tissues are unremarkable. Paranasal sinus disease includes complete opacification of the left maxillary sinus. IMPRESSION: 1. Motion degraded exam. There are small scattered acute to subacute appearing infarcts of the left f rontal and parietal lobes measuring up to 2.1 cm. 2. No acute intracranial hemorrhage or midline shift. 3. Involutional changes with moderate to extensive chronic microvascular ischemic disease. ACT 112: Negative or not required by law. The above report was generated using voice recognition software. It may contain grammatical, syntax o r spelling errors. Electronically signed by: Shabbir Tapia M.D. 11/01/2021 11:14 PM
[2021-11-02 07:11] LABS: Hematocrit (blood only) 42.6 % (40.1-51.0); Hemoglobin 13.7 g/dl (14.0-18.0); Mean Corpuscular Hemoglobin 31.4 pg (25.0-34.0); Mean Corpuscular Hgb Conc 32.2 g/dL (32.0-36.0); Mean Corpuscular Volume 97.7 fL (80.0-100.0); Mean Platelet Volume 10.7 fL (9.4-12.4); Platelet Count 318 K/uL (130-400); RDW Coefficient of Variation 14.2 % (11.5-14.5); RDW Standard Deviation 51.3 fL (36.4-46.3); Red Blood Count 4.36 M/uL (4.63-6.08); White Blood Count 7.91 K/ul (4.8-10.8)
[2021-11-02] MEDS: OMEGA-3 (PURIFIED FISH OIL) 1 GM CAP PO SCH (07:31)
[2021-11-02] MEDS: LOSARTAN POTASSIUM 50 MG TAB PO SCH (07:32)
[2021-11-02] MEDS: THIAMINE HCL 100 MG in SYRINGE 9 ML IV SCH (07:33)
[2021-11-02] MEDS: FOLIC ACID 1 MG in SYRINGE 9.8 ML IV SCH (07:33)
[2021-11-02] MEDS: amLODIPine BESYLATE 5 MG TAB PO SCH (07:33)
[2021-11-02 07:34] LABS: BUN Creatinine Ratio 22.7 (10-20); Calcium 9.2 mg/dl (8.5-10.1); Chol HDL Ratio 2.2 (0-5); Creatinine Clr Calc Pharmacy 50.9 ml/min; Est GFR (African American) 71.6 ml/min; Est GFR (Non-African American) 61.8 ml/min; Magnesium 1.9 mg/dl (1.7-2.4); Potassium 3.6 mmol/L (3.5-5.1)
[2021-11-02 07:42] LABS: INR 2.9 (0.9-1.1); Prothrombin Time 29.1 Seconds (9.0-12.0)
[2021-11-02 07:55] LABS: Estimated Average Glucose 111 mg/dl; Hemoglobin A1C 5.5 % (4.5-5.6)
--- NOTE | 2021-11-02 08:36 | Neurology Consultation ---
Date of Consultation November 02, 2021 Assessment & Plan (1) Cerebrovascular accident: (2) Paroxysmal atrial fibrillation: (3) HTN (hypertension): Plan 81-year-old male with a history of atrial fibrillation, therapeutic on warfarin, hypertension, hyperlipidemia, tobacco and alcohol use, presenting with acute onset right upper extremity weakness yesterday morning worrisome for stroke, with MRI confirmation of acute to subacute infarcts within the left cerebral hemisphere with a distribution suggestive of cardioembolism. He has multifocal atherosclerotic disease on CT angiography of the head and neck although no hemodynamically significant stenosis or large vessel occlusion. Patient's blood pressure remains significantly elevated this morning. He exhibits mild upper motor neuron weakness for the right upper extremity. I do appreciate subtle flattening of the left nasolabial fold which would not likely be related to his acute infarct. He has profound hearing loss and his hearing aid battery needs charging. Given that this patient's embolic appearing infarct occurs while therapeutic on warfarin, it may be beneficial to switch him from warfarin to a direct oral anticoagulant. Patient remains significantly hypertensive this morning. His outpatient amlodipine, and losartan have been continued. He may need an order for Lopressor to be given as needed, systolic blood pressure goal 140 to 160 mmHg acutely. Follow-up with results of echocardiogram. Consultations with PT/OT/speech therapy as ordered. Tobacco cessation counseling. Patient should attempt to reduce his alcohol consumption to no more than 1 or 2 alcoholic drinks per day. Patient should not require additional outpatient neurology follow-up, may continue to follow with his PCP for ongoing management of cardiovascular/stroke risk factors. History of Present Illness Reason for Consultation: stroke Requesting Physician: Rosendo Alarcon MD Attending Physician: Fabian Perez MD History of Present Illness The patient is an 81-year-old male with a chief complaint of right upper extremity weakness, associated slurred speech, and emesis, occurring yesterday morning, about 2-1/2 hours prior to his evaluation in the emergency department. The patient has severe hearing loss and his hearing aids are not functioning this morning (battery depleted?). I did communicate with him with handwritten notes. Past medical history notable for atrial fibrillation, on warfarin, hyperlipidemia, hypertension, and tobacco abuse, 2 packs/day, and daily alcohol consumption, 3 to 4 glasses of wine per day. The patient did have an assessment with the telestroke specialist who did not recommend administration of TNKase in this patient. CT angiography of the head and neck revealed atherosclerotic plaque, but no large vessel occlusion or significant stenosis. There was no evidence of acute hemorrhage. A brain MRI did reveal evidence of several small scattered acute to subacute appearing infarcts within the left frontal and parietal lobes. Imaging described in further detail below. Atrial fibrillation with slow ventricular response was seen on ECG. Patient has been hypertensive, 189/84 during his initial assessment, 206/77 this morning. Patient's warfarin and atorvastatin have been continued, as well as his antihypertensive medications including amlodipine, and losartan. He is also been ordered supplemental IV folic acid and thiamine. An echocardiogram has been ordered, as well as consultations with PT/OT/speech therapy. Patient's INR was therapeutic, 2.6 yesterday, 2.9 this morning. Allergies Allergy/AdvReac Type Severity Reaction Status Date / Time No Known Allergies Allergy Verified 11/01/21 16:02 Home Medications Medication Instructions Recorded Confirmed Type atorvastatin 20 mg tablet 20 mg PO PM 03/17/18 11/01/21 History docusate sodium 100 mg capsule 100 mg PO BID PRN Constipation 03/17/18 11/01/21 History (Col-Rite) omega 0-jhi-vvi-fish oil 1,000 mg 1 cap PO DAILY 03/17/18 11/01/21 History (120 mg-180 mg) capsule (Fish Oil) polyethylene glycol 3350 17 gram 17 g PO DAILY PRN Constipation 03/17/18 11/01/21 History oral powder packet (Miralax) warfarin 5 mg tablet 5 mg PO UD 03/17/18 11/01/21 History amlodipine 10 mg tablet 10 mg PO DAILY 11/01/21 11/01/21 History losartan 50 mg tablet 50 mg PO DAILY 11/01/21 11/01/21 History Patient History Medical History (Updated 11/01/21 @ 21:56 by Raffy Mckinney) Aortic aneurysm HAS BEEN MONITORED FOR PAST 5 YEARS. PT ALSO FOLLOWS WITH [facility]. Atrial fibrillation MOST RECENT EKG 02/22/18 (SEE EMR) History of intestinal obstruction 2010. S/P BOWEL RESECTION. HLD (hyperlipidemia) HTN (hypertension) Hypertension Paroxysmal atrial fibrillation Stroke-like symptoms Weakness Surgical History History of bowel resection History of cataract extraction with lens replacement B/L Social History Smoking Status: Current every day smoker Cigarettes Per Day: SOCIAL CIGARETTE FOR PAST 7 YEARS; Second Hand Exposure: No; Hx Alcohol Use: Yes Alcohol type: beer Hx Substance Use: No Preferred Language: Wallisian Communication Ability: Effective Fan Runner Required: No Beliefs That Will Affect Care: None Current Living Situation: Spouse Current Living Situation Comment: with Feels Safe at Home: Yes Safety Concerns: Feels Safe At This Time Assistive Devices: Glasses and Hearing Aid - Bilateral Review of Systems Constitutional: no fever and no chills Eyes: no blind spots and no diplopia Ear, Nose, Mouth, Throat: + hearing loss Respiratory: no cough and no dyspnea Cardiovascular: no chest pain and no palpitations Gastrointestinal: as per Subjective / HPI, + nausea and + vomiting Genitourinary: no dysuria Musculoskeletal: no neck pain and no myalgia Integumentary: no rash and no lesions Neurologic: as per Subjective / HPI and + localized weakness; no headache(s) Psychiatric: no depression and no anxiety Hematologic / Lymphatic: no easy bleeding Exam (Neuro) Constitutional: well developed and well nourished; no acute distress Eyes: normal visual hurley by confrontation, PERRL, normal accommodation and EOM intact bilaterally; no fundoscopic abnormality, no nystagmus and no papilledema Cardiovascular: Vessels: normal carotid upstroke; no carotid bruit Neurologic: Oriented to:: Person and Place; negative Time Memory: Remote Intact; negative Short Term Intact Attention: Span Intact; negative Concentration Intact Language: Naming Objects and Repeating Phrases Speech Fluency: negative Dysarthria Speech Aphasia: negative Aphasia Fund of Knowledge: Vocabulary Cranial Nerves: Normal II (Visual hurley full to confrontation, visual acuity normal), III, IV, (Pupils equal round reactive to light and accommodation, eye movements normal), V (Facial sensation intact), IX, X (Palate elevates to midline), XI (Shoulder shrug intact) and XII (Tongue protrudes to midline); Abnorm VII (There is mild flattening of the left nasolabial fold.) or VIII (There is severely diminished hearing bilaterally. (Hearing aid nonfunctioning this morning.)) Motor Strength: Pronator Drift Laterality: Right and Hemiparesis (Face and arm greater than leg, very mild) Laterality: Right; negative Normal Lower Extremities or Normal Upper Extremities Motor Tone: Normal Lower Extremities and Normal Upper Extremities Muscle Bulk/Involuntary Movements: No Involuntary Movements; negative Muscle Atrophy Sensation: Light Touch Intact, Pain/Temperature Intact, Vibration Intact and Proprioception Intact Coordination: Normal and Finger-Nose Abnormal Laterality: Right; negative Limited Balance, Dysdiadochokinesia or Heel-Vital Abnormal Deep Tendon Reflexes: Rt Triceps: 2+, Lt Triceps: 2+, Rt Biceps: 2+, Lt Biceps: 2+, Rt Brachioradialis: 2+, Lt Brachioradialis: 2+, Rt Patellar: 2+, Lt Patellar: 2+, Rt Ankle: 1+ and Lt Ankle: 1+ Special Tests: negative Babinski Present Details: Gait cannot be safely tested in the context of patient's current neurological status. Patient exhibits a very mild right hemiparesis, arm greater than leg characterized by mild dysmetria with [id number], fixed with arm roll on the right, impaired facility of the right hand. Results & Data ([facility]) Vital Signs (Past 12 Hours) Vital Signs Temp Pulse Pulse Resp BP BP Pulse Ox 11/02/21 04:00 36.6 C 45 L 18 180/72 H 94 11/02/21 07:11 36.5 C 53 L 18 206/77 H 95 11/02/21 05:52 36.8 C 55 L 18 200/80 H 93 11/01/21 23:00 37.0 C 43 L 17 166/69 H 97 11/01/21 22:26 47 L 11/01/21 20:09 11/01/21 20:09 36.7 C 46 L 18 172/77 H 97 O2 Del Method 11/02/21 04:00 Room Air 11/02/21 07:11 Room Air 11/02/21 05:52 Room Air 11/01/21 23:00 Room Air 11/01/21 22:26 11/01/21 20:09 Room Air 11/01/21 20:09 Room Air Laboratory Results WBC 7.91, hemoglobin 13.7, hematocrit 42.6, MCV 97.7, platelet count 318, PT 29.1, INR 2.9, sodium 143, potassium 3.6, BUN 25, creatinine 1.10, glucose 76, hemoglobin A1c 5.5, calcium 9.2, magnesium 1.9, AST 16, ALT 11, triglycerides 50, cholesterol 103, LDL 46, VLDL 10, HDL 47, SARS-CoV-[address] angiography of the head and neck negative for hemorrhage or acute process, unremarkable CT angiogram of the brain, atherosclerotic plaque causing 50% focal stenosis of the proximal right internal carotid artery. There is mild focal stenosis at the origin of the right vertebral artery. There is advanced atherosclerotic plaque within the left carotid bulb. Brain MRI reveals scattered foci of restricted diffusion within the left frontal and parietal lobes, largest focus within the anterior left frontal lobe measures 1.6 cm, largest focus within the left parietal lobe measures 2.1 cm. There is intermediate decreased signal on ADC mapping. There is no hemorrhage, there is generalized atrophy and moderate to extensive chronic T2/FLAIR hyperintense foci consistent with chronic microvascular ischemic change. I independently reviewed the images and agree with these findings as described by the interpreting radiologist. An electrocardiogram reveals atrial fibrillation with slow ventricular response, 53 bpm. Coding Level of Care Code 97040 Initial In Care Lvl 3 Diagnoses Cerebrovascular accident I63.9 CVA mechanism: unspecified Paroxysmal atrial fibrillation I48.0 HTN (hypertension) I10 (1) Cerebrovascular accident CVA mechanism: unspecified Qualified Code(s): I63.9 - Cerebral infarction, unspecified
[2021-11-02] MEDS ORDERED: ENALAPRILAT 0.625 MG in SYRINGE 9.5 ML IV PRN (08:50)
[2021-11-02] MEDS: ASPIRIN 81 MG ECTAB PO SCH (09:22)
--- NOTE | 2021-11-02 14:34 | Hospitalist Progress Note ---
Date of Service November 02, 2021 Assessment & Plan (1) Stroke-like symptoms: (2) Weakness: (3) HTN (hypertension): (4) HLD (hyperlipidemia): (5) Paroxysmal atrial fibrillation: Plan Patient is an 81 yr male presented with history of RUE weakness and an episode of vomiting. Acute CVA -MRI Brain:There are small scattered acute to subacute appearing infarcts of the left frontal and parietal lobes measuring up to 2.1 cm. No acute intracranial hemorrhage or midline shift. Involutional changes with moderate to extensive chronic microvascular ischemic disease. -Head/Neck CTA:There is no hemorrhage, mass effect, or evidence of acute territorial ischemia by CT criteria. Unremarkable CT angiogram of the brain. Atherosclerotic plaque causes approximately 50% focal stenosis of the proximal right internal carotid artery. There is at least mild focal stenosis at the origin of the right vertebral artery. Otherwise unremarkable CT angiogram of the neck. Emphysema. Paranasal sinus disease as above. --ECHO: Atrial fibrillation with ventricular rates in the range of 50 to 60s during the echocardiogram study. Left atrium is moderately dilated. Aortic valve sclerosis moderate, without significant aortic valvular stenosis. Moderat e aortic regurgitation. There is moderate mitral regurgitation. Pulmonary artery systolic pressure is estimated to be 30 to 35 mmHg. EF 55 to 60%. No ASD, could not assess for PFO. -- LDL 46; HbA1c 5.5 -- Evaluated by speech therapy Appreciate neurology input Started on aspirin 81 mg daily As patient had acute CVA while on warfarin; Plan to transition from warfarin to Eliquis once INR is < 2.0 Continue PT OT Fall precautions Needs follow-up with neurology upon discharge HTN: Continue Amlodipine, Losartan Monitor HLD: continue atorvastatin Alcohol Use: Pt drinks 3-4 glasses of wine daily Monitor for withdrawal Flow Worker to minimize alcohol use Continue thiamine, folic acid Paroxysmal atrial fibrillation INR therapeutic: 2.9 today Hold Coumadin Plan to transition to Eliquis once INR is subtherapeutic DVT Px: INR therapeutic Code Status: Full Code Disposition PT/OT prior to discharge Admission and Anticipated Discharge Date Admission Date: November 01, 2021 Subjective Patient is seen and examined at bedside History difficult to obtain due to significant Denies chest Pain, dyspnea Speech therapy evaluation today Discussed with neurology today Review of Systems Review of Systems: All systems reviewed & are unremarkable except as noted in Subjective Physical Exam Physical Exam: Physical Exam: Vitals signs as noted above General Appearance:Moderately built and nourished, no apparent distress Head: normocephalic, Atraumatic Eyes: normal inspection, EOMI Neck: supple, Trachea midline Respiratory/Chest: Normal breath sounds, CTA, No accessory muscle use Cardiovascular: Irregularly irregular, + murmur Abdomen/GI:Soft, Non tender, Bowel sounds present Extremities/Musculoskeletal:normal inspection, no edema Neurologic/Psych:AAOX2, mild right hemiparesis + significant hearing impairment Skin: normal color, warm Results & Data Results & Data ([facility]) Vital Signs (Past 12 Hours) Vital Signs Temp Pulse Resp BP BP Pulse Ox O2 Del Method 11/02/21 11:36 36.8 C 55 L 18 147/69 H 95 Room Air 11/02/21 04:00 36.6 C 45 L 18 180/72 H 94 Room Air 11/02/21 07:11 36.5 C 53 L 18 206/77 H 95 Room Air 11/02/21 05:52 36.8 C 55 L 18 200/80 H 93 Room Air Laboratory Results Short CBC 11/01/21 11/02/21 Range/Units 15:11 06:22 WBC 9.08 7.91 (4.8-10.8) K/ul Hgb 14.7 13.7 L (14.0-18.0) g/dl Hct 45.8 42.6 (40.1-51.0) % Plt Count 341 318 (130-400) K/uL BMP 11/01/21 11/02/21 15:11 06:22 Sodium 143 143 Potassium 3.9 3.6 Chloride 109 H 111 H Carbon Dioxide 27 27 BUN 31 H 25 H Creatinine 1.28 1.10 Glucose 112 H 76 Calcium 9.8 9.2 Liver Function 11/01/21 Range/Units 15:11 Total Bilirubin 1.1 H (0.2-1.0) mg/dl AST 16 (13-39) U/L ALT 11 (7-52) U/L Alkaline Phosphatase 47 (34-104) U/L Albumin 4.0 (3.4-5.0) gm/dl
[2021-11-02] MEDS ORDERED: WARFARIN SOD 3 MG TAB PO SCH (16:00)
[2021-11-02] MEDS: ATORVASTATIN 20 MG TAB PO SCH (20:53)
[2021-11-03] MEDS ORDERED: POTASSIUM CHLORIDE PWD 20 MEQ PACK PO STA (01:23)
[2021-11-03] MEDS ORDERED: MAGNESIUM SULFATE / D5W 1 GM/100 ML BAG IV ONE (01:30)
[2021-11-03 01:59] LABS: Hematocrit (blood only) 41.3 % (40.1-51.0); Hemoglobin 13.6 g/dl (14.0-18.0); Mean Corpuscular Hemoglobin 31.9 pg (25.0-34.0); Mean Corpuscular Hgb Conc 32.9 g/dL (32.0-36.0); Mean Corpuscular Volume 96.7 fL (80.0-100.0); Mean Platelet Volume 10.7 fL (9.4-12.4); Platelet Count 304 K/uL (130-400); RDW Coefficient of Variation 13.9 % (11.5-14.5); RDW Standard Deviation 49.2 fL (36.4-46.3); Red Blood Count 4.27 M/uL (4.63-6.08); White Blood Count 8.02 K/ul (4.8-10.8)
[2021-11-03 02:15] LABS: INR 2.7 (0.9-1.1); Prothrombin Time 27.1 Seconds (9.0-12.0)
[2021-11-03 02:21] LABS: BUN Creatinine Ratio 22.7 (10-20); Calcium 8.9 mg/dl (8.5-10.1); Est GFR (African American) 65.1 ml/min; Est GFR (Non-African American) 56.2 ml/min; Potassium 4.1 mmol/L (3.5-5.1)
[2021-11-03] MEDS ORDERED: OLANZapine 10 MG/2.1 ML SDV IM STA (02:24)
[2021-11-03] MEDS ORDERED: LORazepam 0.25 MG in SYRINGE 0.125 ML IV STA (02:44)
[2021-11-03] MEDS ORDERED: D5W AND NSS 1,000 ML IV ONE (02:44)
[2021-11-03 05:26] LABS: Appearance Urine Clear (Clear); Bacteria Urine Automated Negative (Negative); Bilirubin Urine Negative (Negative); Blood Urine Trace (Negative); Color Urine Yellow; Epithelial Cell Urine Auto 0-5 /lpf (0-5); Glucose Urine UA Negative (Negative); Ketones Urine Negative (Negative); Leukocyte Esterase Urine Negative (Negative); Nitrite Urine Negative (Negative); Protein Urine Trace (Negative); RBC Urine Automated 0-4 /hpf (0-4); Specific Gravity Urine 1.011 (1.000-1.030); Urobilinogen Urine Negative (Negative); WBC Urine Automated 0 /hpf (0-5)
[2021-11-03] MEDS: ASPIRIN 81 MG ECTAB PO SCH (07:38)
[2021-11-03] MEDS: OMEGA-3 (PURIFIED FISH OIL) 1 GM CAP PO SCH (07:38)
[2021-11-03] MEDS: THIAMINE HCL 100 MG TAB PO SCH (07:39)
[2021-11-03] MEDS: LOSARTAN POTASSIUM 50 MG TAB PO SCH (07:39)
[2021-11-03] MEDS: FOLIC ACID 1 MG TAB PO SCH (07:39)
[2021-11-03] MEDS: amLODIPine BESYLATE 5 MG TAB PO SCH (07:39)
--- NOTE | 2021-11-03 14:27 | Hospitalist Progress Note ---
Date of Service November 03, 2021 Assessment & Plan (1) Stroke-like symptoms: (2) Weakness: (3) HTN (hypertension): (4) HLD (hyperlipidemia): (5) Paroxysmal atrial fibrillation: Plan Patient is an 81 yr male presented with history of RUE weakness and an episode of vomiting. Acute CVA -MRI Brain:There are small scattered acute to subacute appearing infarcts of the left frontal and parietal lobes measuring up to 2.1 cm. No acute intracranial hemorrhage or midline shift. Involutional changes with moderate to extensive chronic microvascular ischemic disease. -Head/Neck CTA:There is no hemorrhage, mass effect, or evidence of acute territorial ischemia by CT criteria. Unremarkable CT angiogram of the brain. Atherosclerotic plaque causes approximately 50% focal stenosis of the proximal right internal carotid artery. There is at least mild focal stenosis at the origin of the right vertebral artery. Otherwise unremarkable CT angiogram of the neck. Emphysema. Paranasal sinus disease as above. --ECHO: Atrial fibrillation with ventricular rates in the range of 50 to 60s during the echocardiogram study. Left atrium is moderately dilated. Aortic valve sclerosis moderate, without significant aortic valvular stenosis. Moderat e aortic regurgitation. There is moderate mitral regurgitation. Pulmonary artery systolic pressure is estimated to be 30 to 35 mmHg. EF 55 to 60%. No ASD, could not assess for PFO. -- LDL 46; HbA1c 5.5 -- Evaluated by speech therapy Appreciate neurology input Started on aspirin 81 mg daily As patient had acute CVA while on warfarin; Plan to transition from warfarin to Eliquis once INR is < 2.0 Continue PT OT Fall precautions Needs follow-up with neurology upon discharge INR 2.7 today Delirium Reorient frequently HTN: Continue Amlodipine, Losartan Monitor HLD: continue atorvastatin Alcohol Use: Pt drinks 3-4 glasses of wine daily Monitor for withdrawal Grade Recorder to minimize alcohol use Continue thiamine, folic acid Paroxysmal atrial fibrillation INR therapeutic: 2.7 today Hold Coumadin Plan to transition to Eliquis once INR is subtherapeutic DVT Px: INR therapeutic Code Status: Full Code Disposition PT/OT prior to discharge Admission and Anticipated Discharge Date Admission Date: November 01, 2021 Subjective Patient is seen and examined at bedside History difficult to obtain due to significant hearing impairment Agitated and combative overnight Sitter at bedside Calm and cooperative this morning Denies chest Pain, dyspnea Review of Systems Review of Systems: All systems reviewed & are unremarkable except as noted in Subjective Physical Exam Physical Exam: Physical Exam: Vitals signs as noted above General Appearance:Moderately built and nourished, no apparent distress Head: normocephalic, Atraumatic Eyes: normal inspection, EOMI Neck: supple, Trachea midline Respiratory/Chest: Normal breath sounds, CTA, No accessory muscle use Cardiovascular: Irregularly irregular, + murmur Abdomen/GI:Soft, Non tender, Bowel sounds present Extremities/Musculoskeletal:normal inspection, no edema Neurologic/Psych:AAOX2, mild right hemiparesis + significant hearing impairment Skin: normal color, warm Results & Data Results & Data ([facility]) Vital Signs (Past 12 Hours) Vital Signs Pulse 11/03/21 07:02 66 Laboratory Results Short CBC 11/03/21 Range/Units 01:33 WBC 8.02 (4.8-10.8) K/ul Hgb 13.6 L (14.0-18.0) g/dl Hct 41.3 (40.1-51.0) % Plt Count 304 (130-400) K/uL BMP 11/03/21 01:33 Sodium 138 Potassium 4.1 Chloride 109 H Carbon Dioxide 24 BUN 27 H Creatinine 1.19 Glucose 77 Calcium 8.9 Urine 11/03/21 Range/Units 05:10 Urine Color Yellow Urine Appearance Clear (Clear) Urine pH 6.0 (4.5-7.5) Ur Specific [place] 1.011 (1.000-1.030) Urine Protein Trace H (Negative) Urine Glucose (UA) Negative (Negative)
--- NOTE | 2021-11-03 14:30 | Electrocardiogram Report ---
Test Reason : Blood Pressure : / mmHG Vent. Rate : 040 BPM Atrial Rate : 073 BPM P-R Int : 000 ms QRS Dur : 140 ms QT Int : 498 ms P-R-T Axes : 000 -63 106 degrees QTc Int : 405 ms Atrial fibrillation with slow ventricular response Left axis deviation Left ventricular hypertrophy with QRS widening and secondary ST/T changes T wave abnormality, consider lateral ischemia Abnormal ECG When compared with ECG of 01-NOV-2021 15:31, No significant change was found Confirmed by Kurtis Queen ([id number]) on 11/03/2021 2:30:22 PM Referred By: REFERRED SELF Confirmed By:Kurtis Queen
--- NOTE | 2021-11-03 15:12 | Electrocardiogram Report ---
Test Reason : Blood Pressure : / mmHG Vent. Rate : 046 BPM Atrial Rate : 048 BPM P-R Int : 000 ms QRS Dur : 146 ms QT Int : 496 ms P-R-T Axes : 000 -62 100 degrees QTc Int : 434 ms Atrial fibrillation with slow ventricular response Left axis deviation Left bundle branch block Abnormal ECG When compared with ECG of 01-NOV-2021 16:48, (unconfirmed) Left bundle branch block is now Present No significant change was found Confirmed by Kurtis Queen ([id number]) on 11/03/2021 3:11:59 PM Referred By: REFERRED SELF Confirmed By:Kurtis Queen
[2021-11-03] MEDS: ATORVASTATIN 20 MG TAB PO SCH (20:15)
[2021-11-04] MEDS: FOLIC ACID 1 MG TAB PO SCH (07:23)
[2021-11-04] MEDS: amLODIPine BESYLATE 5 MG TAB PO SCH (07:23)
[2021-11-04] MEDS: ASPIRIN 81 MG ECTAB PO SCH (07:24)
[2021-11-04] MEDS: LOSARTAN POTASSIUM 50 MG TAB PO SCH (07:24)
[2021-11-04] MEDS: THIAMINE HCL 100 MG TAB PO SCH (07:24)
[2021-11-04] MEDS: OMEGA-3 (PURIFIED FISH OIL) 1 GM CAP PO SCH (07:24)
[2021-11-04 09:00] LABS: INR 1.8 (0.9-1.1); Prothrombin Time 18.3 Seconds (9.0-12.0)
[2021-11-04 09:17] LABS: BUN Creatinine Ratio 20.3 (10-20); Calcium 9.4 mg/dl (8.5-10.1); Creatinine Clr Calc Pharmacy 45.5 ml/min; Est GFR (African American) 62.5 ml/min; Potassium 3.7 mmol/L (3.5-5.1)
[2021-11-04 09:20] LABS: Troponin I High Sensitivity 16.6 pg/ml (0-20)
[2021-11-04] MEDS ORDERED: APIXABAN 5 MG TABLET PO SCH (09:45)
--- NOTE | 2021-11-04 11:12 | Cardiology Consultation ---
Date of Consultation November 04, 2021 Assessment & Plan (1) Cerebrovascular accident: (2) Chronic atrial fibrillation: (3) HLD (hyperlipidemia): (4) HTN (hypertension): (5) Carotid stenosis: (6) LBBB (left bundle branch block): Plan Patient admitted for acute CVA with infarct noted within left frontal and parietal lobes on Brain MRI. On admission, INR was therapeutic at 2.6. He is on chronic coumadin for history of persistent afib. He has known b/l carotid disease, but no significant stenosis on head/neck CTA. Neurology was consulted and ASA 81 mg daily was initiated. Given therapeutic INR on admission, it was recommended transitioning patient to Eliquis which was started when INR was below 2.0. Continue statin. LDL at goal of 46 BP has been elevated, with permissive hypertension on arrival. BP trending down. Continue amlodipine, losartan. May need to increase losartan to 100 mg daily. No AV scott blocking agents. There was concern regarding "new" LBBB on EKG. However, per review of past EKG's over many years he has had widened QRS with LBBB pattern on all EKG's, similar to this current finding. Echo during admission demonstrated preserved LVEF. HS troponin also unremarkable. LBBB not indicative of ACS. His persistent afib with slow ventricular rates remain unchanged from outpatient EKG's. Avoid AV scott blocking agents given his slow rates. He is asymptomatic. He has a history of ascending aortic aneurysm with conservative therapies p referred by the patient. Echo reveals no significant change from prior study in regards to aortic root and visualized ascending aorta. Case discussed with Dr. Solorio. Will follow History of Present Illness Reason for Consultation: afib; LBBB; stroke Requesting Physician: Dr. Perez Attending Physician: Dr. Solorio History of Present Illness Patient is an 81 year old male, known to [facility]/Dr. Hall. History includes: 1. Asymptomaticpermanentatrial fibrillation on chronic Coumadin therapy 2. Moderate to severe aortic regurgitation 3. Severely enlarged ascending thoracic aortic aneurysm at 5 cm, previously declining surgery 4. Ongoing tobacco abuse 5. Very hard of hearing 6. Questionable dementia 7. History of left>right carotid stenosis. Patient came to [facility] with RUE weakness and slurred speech noted by family members. Found to have acute/sub acute infarct left frontal and parietal lobes. Stroke alert called but TPA was not advised as symptoms were already improving. Neurology consulted and ASA added. Given INR was therapeutic at 2.6 on arrival, neurology recommended transitioning to DOAC. Coumadin held and when INR was less than 2.0, Eliquis was initiated. At time of consult, patient was very hard of hearing. Answers questions appropriately but unable to provide significant history. He seemed unaware he had a stroke. Unable to tell me about his living situation. He denies current complaints. Moving right upper extremity without issue. no slurred speech noted this morning. Denies headache. No chest pain or SOB. He denies dizziness or palpitations. no syncope or near syncope. No edema. Allergies Allergy/AdvReac Type Severity Reaction Status Date / Time No Known Allergies Allergy Verified 11/01/21 16:02 Home Medications Medication Instructions Recorded Confirmed Type atorvastatin 20 mg tablet 20 mg PO PM 03/17/18 11/01/21 History docusate sodium 100 mg capsule 100 mg PO BID PRN Constipation 03/17/18 11/01/21 History (Col-Rite) omega 1-swi-bbv-fish oil 1,000 mg 1 cap PO DAILY 03/17/18 11/01/21 History (120 mg-180 mg) capsule (Fish Oil) polyethylene glycol 3350 17 gram 17 g PO DAILY PRN Constipation 03/17/18 11/01/21 History oral powder packet (Miralax) warfarin 5 mg tablet 5 mg PO UD 03/17/18 11/01/21 History amlodipine 10 mg tablet 10 mg PO DAILY 11/01/21 11/01/21 History losartan 50 mg tablet 50 mg PO DAILY 11/01/21 11/01/21 History apixaban 5 mg tablet (Eliquis) 5 mg PO BID #60 tabs 11/04/21 Rx Patient History Medical History (Updated 11/04/21 @ 12:03 by Fabiola Cruz PA-C) Aortic aneurysm HAS BEEN MONITORED FOR PAST 5 YEARS. PT ALSO FOLLOWS WITH [facility]. Atrial fibrillation MOST RECENT EKG 02/22/18 (SEE EMR) History of intestinal obstruction 2010. S/P BOWEL RESECTION. HLD (hyperlipidemia) HTN (hypertension) Hypertension Paroxysmal atrial fibrillation Stroke-like symptoms Weakness Surgical History History of bowel resection History of cataract extraction with lens replacement B/L Social History Smoking Status: Current every day smoker Cigarettes Per Day: SOCIAL CIGARETTE FOR PAST 7 YEARS; Second Hand Exposure: No; Hx Alcohol Use: Yes Alcohol type: beer Hx Substance Use: No Preferred Language: Urdu Communication Ability: Effective Business Travel Consultant Required: No Beliefs That Will Affect Care: None Current Living Situation: Spouse Current Living Situation Comment: with Feels Safe at Home: Yes Safety Concerns: Feels Safe At This Time Assistive Devices: Glasses and Hearing Aid - Bilateral Review of Systems Review of Systems: All systems reviewed & are unremarkable except as noted in HPI & below Physical Exam Constitutional: WD/WN, vitals as above Neck: trachea midline, no thyromegaly Respiratory: normal respiratory effort, lungs clear to auscultation Cardiovascular: Rate/Rhythm: + bradycardic and + irregularly irregular Heart Sounds: normal S1, normal S2 and + murmur (II/ diastolic murmur) Gastrointestinal (Abdomen): normal bowel sounds, soft, nontender, no hepatosplenomegaly Skin: no rashes, warm and dry Neurologic: awake Psychiatric: Orientation: alert, oriented to place and cooperative Results & Data ([facility]) Vital Signs (Past 12 Hours) Vital Signs Temp Pulse Pulse Resp BP BP Pulse Ox 11/04/21 11:01 36.8 C 42 L 16 168/68 H 95 11/04/21 08:18 55 L 11/04/21 08:00 36.6 C 46 L 16 156/74 H 97 11/04/21 03:41 36.5 C 45 L 18 153/55 H 96 O2 Del Method 11/04/21 11:01 Room Air 11/04/21 08:18 11/04/21 08:00 Room Air 11/04/21 03:41 Room Air Laboratory Results Cardiac Enzymes 11/04/21 Range/Units 08:11 Troponin I High Sens 16.6 (0-20) pg/ml Coagulation 11/04/21 Range/Units 08:11 PT 18.3 H (9.0-12.0) Seconds Comprehensive Metabolic Panel 11/04/21 Range/Units 08:11 Sodium 143 (136-145) mmol/L Potassium 3.7 (3.5-5.1) mmol/L Chloride 110 H (98-107) mmol/L Carbon Dioxide 27 (21-32) mmol/L BUN 25 H (6-23) mg/dl Creatinine 1.23 (0.6-1.4) mg/dl Glucose 83 (70-99(Fasting)) mg/dl Calcium 9.4 (8.5-10.1) mg/dl Intake and Output 11/03/21 11/04/21 11/04/21 22:59 06:59 14:59 Intake Total 1000 / 1545 240 / 240 Balance 1000 / 1545 240 / 240 Intake: IV 1000 / 1000 D5w and Nss 1,000 ml @ 40 mls/ 1000 / 1000 hr IV .Q24H ONE Rx#:[id number] Oral 240 / 240 Other: Weight 73.5 kg Patient Weight 11/05/21 06:59 Weight 73.5 kg Diagnostic Findings Telemetry reviewed - Chronic afib with slow ventricular rates. During wakefulness - afib rates range 50-60's. During sleep, rates can often drop in the 20-30 bmp range. No symptoms reported. He had one prolonged R to R reading of 3.1 seconds. EKG's reviewed since admission: Atrial fibrillation with slow ventricular rates, intermittent PVC's. prolonged QRS, consistent with incomplete/complete LBBB When reviewing old EKG's, he has had a prolonged QRS with LBBB pattern. Brain MRI: IMPRESSION: 1. Motion degraded exam. There are small scattered acute to subacute appearing infarcts of the left frontal and parietal lobes measuring up to 2.1 cm. 2. No acute intracranial hemorrhage or midline shift. 3. Involutional changes with moderate to extensive chronic microvascular ischemic disease. Echo results reviewed dated 11/02/21: Afib with controlled rates present during study. LA is moderately dilated. Aortic valve sclerosis moderate without significant aortic valvular stenosis. Moderate AI. Moderate MR. Pulm artery systolic pressure is estimated to be 30-35 mmHg. LVEF 55-60%. Ascending aorta measuring 3.7 cm. Medications Administered Medications atorvastatin 20 mg tablet 20 mg PO PM 03/17/18 [History Confirmed 11/01/21] docusate sodium 100 mg capsule (Col-Rite) 100 mg PO BID PRN Constipation 03/17/18 [History Confirmed 11/01/21] omega 4-jqo-hri-fish oil 1,000 mg (120 mg-180 mg) capsule (Fish Oil) 1 cap PO DAILY 03/17/18 [History Confirmed 11/01/21] polyethylene glycol 3350 17 gram oral powder packet (Miralax) 17 g PO DAILY PRN Constipation 03/17/18 [History Confirmed 11/01/21] warfarin 5 mg tablet 5 mg PO UD 03/17/18 [History Confirmed 11/01/21] amlodipine 10 mg tablet 10 mg PO DAILY 11/01/21 [History Confirmed 11/01/21] losartan 50 mg tablet 50 mg PO DAILY 11/01/21 [History Confirmed 11/01/21] apixaban 5 mg tablet (Eliquis) 5 mg PO BID #60 tabs 11/04/21 [Rx] Home Medications Amlodipine Besylate (Amlodipine Besylate 5 Mg Tab) 10 mg PO DAILY JORDAN Stop: 12/02/21 08:59 Last Admin: 11/04/21 07:23 Dose: 10 mg Apixaban (Apixaban 5 Mg Tablet) 5 mg PO BID JORDAN Stop: 12/04/21 09:44 Last Admin: 11/04/21 10:14 Dose: 5 mg Aspirin (Aspirin 81 Mg Ectab) 81 mg PO QAM JORDAN Stop: 12/02/21 08:59 Last Admin: 11/04/21 07:24 Dose: 81 mg Atorvastatin Calcium (Atorvastatin 20 Mg Tab) 20 mg PO PM JORDAN Stop: 12/01/21 20:59 Last Admin: 11/03/21 20:15 Dose: 20 mg Docusate Sodium (Docusate Sodium 100 Mg Cap) 100 mg PO BID PRN PRN Reason: Constipation Stop: 12/01/21 18:23 Fish Oil ([place]-3 (Purified Fish Oil) 1 Gm Cap) 1 gm PO DAILY JORDAN Stop: 12/02/21 08:59 Last Admin: 11/04/21 07:24 Dose: 1 gm Folic Acid (Folic Acid 1 Mg Tab) 1 mg PO QAM JORDAN Stop: 12/03/21 08:59 Last Admin: 11/04/21 07:23 Dose: 1 mg Lorazepam 1 mg/ Syringe 1 mls @ 2 mls/min IV ONE PRN; Protocol PRN Reason: EtoH Withdrawal AWSS 6,7,8,9,1 Enalaprilat 0.625 mg/ Syringe 10 mls @ 2 mls/min IV Q6H PRN PRN Reason: HypertensionSBP>180 or DBP>100 Stop: 12/02/21 08:59 Losartan Potassium (Losartan Potassium 50 Mg Tab) 50 mg PO DAILY [facility] Stop: 12/02/21 08:59 Last Admin: 11/04/21 07:24 Dose: 50 mg Miscellaneous Information (Pharmacist Discharge Med Rec Consult) 1 each N/A UD PRN PRN Reason: Consult Stop: 12/01/21 18:23 Polyethylene Glycol (Polyethylene (Miralax) 17 Gm Pack) 17 gm PO DAILY PRN PRN Reason: Constipation Stop: 12/01/21 18:23 Thiamine HCl (Thiamine Hcl 100 Mg Tab) 100 mg PO QAM [facility] Stop: 12/03/21 08:59 Last Admin: 11/04/21 07:24 Dose: 100 mg (1) Cerebrovascular accident CVA mechanism: unspecified Qualified Code(s): I63.9 - Cerebral infarction, unspecified
--- NOTE | 2021-11-04 13:45 | Hospitalist Progress Note ---
Date of Service November 04, 2021 Assessment & Plan (1) Stroke-like symptoms: (2) Weakness: (3) HTN (hypertension): (4) HLD (hyperlipidemia): (5) Paroxysmal atrial fibrillation: Plan Patient is an 81 yr male presented with history of RUE weakness and an episode of vomiting. Acute CVA -MRI Brain:There are small scattered acute to subacute appearing infarcts of the left frontal and parietal lobes measuring up to 2.1 cm. No acute intracranial hemorrhage or midline shift. Involutional changes with moderate to extensive chronic microvascular ischemic disease. -Head/Neck CTA:There is no hemorrhage, mass effect, or evidence of acute territorial ischemia by CT criteria. Unremarkable CT angiogram of the brain. Atherosclerotic plaque causes approximately 50% focal stenosis of the proximal right internal carotid artery. There is at least mild focal stenosis at the origin of the right vertebral artery. Otherwise unremarkable CT angiogram of the neck. Emphysema. Paranasal sinus disease as above. --ECHO: Atrial fibrillation with ventricular rates in the range of 50 to 60s during the echocardiogram study. Left atrium is moderately dilated. Aortic valve sclerosis moderate, without significant aortic valvular stenosis. Modera te aortic regurgitation. There is moderate mitral regurgitation. Pulmonary artery systolic pressure is estimated to be 30 to 35 mmHg. EF 55 to 60%. No ASD, could not assess for PFO. -- LDL 46; HbA1c 5.5 -- Evaluated by speech therapy Appreciate neurology input Started on aspirin 81 mg daily As patient had acute CVA while on warfarin; Plan to transition from warfarin to Eliquis once INR is < 2.0 Continue PT OT Fall precautions INR 1.8 today Start on Eliquis 5mg Twice a day Patient is elderly, LDL 46: Plan to continue his current Lipitor 20 mg daily Advised to follow-up with neurology as outpatient Delirium Reorient frequently HTN: Continue Amlodipine, Losartan Monitor HLD: continue atorvastatin Alcohol Use: Pt drinks 3-4 glasses of wine daily Monitor for withdrawal [employer] to minimize alcohol use Continue thiamine, folic acid LBBB Patient denies angina symptoms Troponins negative Echo no wall motion abnormality Appreciate cardiology input Paroxysmal atrial fibrillation Coumadin discontinued Stated on Eliquis DVT Px: Eliquis Code Status: Full Code Disposition Home Admission and Anticipated Discharge Date Admission Date: November 01, 2021 Subjective Patient is seen and examined at bedside History difficult to obtain due to significant hearing impairment States feeling well No new complaints Denies chest Pain, dyspnea Updated patient's over the phone Review of Systems Review of Systems: All systems reviewed & are unremarkable except as noted in Subjective Physical Exam Physical Exam: Physical Exam: Vitals signs as noted above General Appearance:Moderately built and nourished, no apparent distress Head: normocephalic, Atraumatic Eyes: normal inspection, EOMI Neck: supple, Trachea midline Respiratory/Chest: Normal breath sounds, CTA, No accessory muscle use Cardiovascular: Irregularly irregular, + murmur Abdomen/GI:Soft, Non tender, Bowel sounds present Extremities/Musculoskeletal:normal inspection, no edema Neurologic/Psych:AAOX2, mild right hemiparesis + significant hearing impairment Skin: normal color, warm Results & Data Results & Data ([facility]) Vital Signs (Past 12 Hours) Vital Signs Temp Pulse Pulse Resp BP BP Pulse Ox 11/04/21 11:01 36.8 C 42 L 16 168/68 H 95 11/04/21 08:18 55 L 11/04/21 08:00 36.6 C 46 L 16 156/74 H 97 11/04/21 03:41 36.5 C 45 L 18 153/55 H 96 O2 Del Method 11/04/21 11:01 Room Air 11/04/21 08:18 11/04/21 08:00 Room Air 11/04/21 03:41 Room Air Laboratory Results BMP 11/04/21 08:11 Sodium 143 Potassium 3.7 Chloride 110 H Carbon Dioxide 27 BUN 25 H Creatinine 1.23 Glucose 83 Calcium 9.4
[2021-11-04] MEDS ORDERED: STROKE PATIENT DISCHARGE STA (14:14)
--- NOTE | 2021-11-04 14:18 | Discharge Summary ---
Date of Service November 04, 2021 Admission HPI Per Admitting Provider Mr. Elise started to experience RUE weakness and an episode of vomiting this morning and his called their son, who called EMS. The patient has some confusion and is a poor historian. His son, Tejas, is at the bedside who reports that his speech has slurred subtly with left-sided facial drooping. Pt reports smoking 2ppd x 20 years and reports drinking wine 3-4 glasses daily. Pt denies recreational drug use. Patient has a PMH that includes: paroxysmal atrial fibrillation (on Coumadin), HTN, HLD, and cognitive loss over the past year, and others. A stroke alert was called. ED discussed with Dr. Reyes who was on for [place] telestroke. ED physician discussed with Dr. Reyes who states she does not recommend vitamin K or TNK in this patient. A head/Neck CTA done: 50% focal stenosis of the proximal right internal carotid artery. Mild focal stenosis at the origin of the right vertebral artery. Pt denies [place], dizziness, CP, palpitation, N/V/D, skin changes, sore throat, cough, urinary changes. Please see A/P for further details. Patient will be admitted for further evaluation and management. Please see A/P for further details. Admission Exam Per Admitting Provider GENERAL: Alert and oriented x1. NAD, on RA. [place] HEENT: No pallor, no icterus. Pupils equal, round and reactive to light. Oral mucosa moist. NECK: No JVD, no neck masses. HEART: S1 and S2 heard. Regular rate and rhythm. No murmur, no gallop. RESPIRATORY SYSTEM: Normal AP diameter. No accessory muscle use. No wheezing, no crackles. ABDOMEN: Soft, bowel sounds present, nontender, no distention. CENTRAL NERVOUS SYSTEM: No facial droop. Speech is clear. Obeys simple commands. Moves extremities. Power nl all extremities but LUE preference >>>>RUE. EXTREMITIES: No edema, no erythema seen. Principal Diagnosis Acute stroke Paroxysmal atrial fibrillation Left bundle branch block Delirium--Resolved Discharge Data Allergies Allergy/AdvReac Type Severity Reaction Status Date / Time No Known Allergies Allergy Verified 11/01/21 16:02 Consultations 11/01/21 15:57 ED Decision to Admit Stat 11/01/21 18:24 Consult Neurology Routine 11/04/21 09:26 Consult Cardiology Routine Procedures Performed Laboratory Results WBC 8.02 K/ul (4.8-10.8) 11/03/21 01:33 RBC 4.27 M/uL (4.63-6.08) L 11/03/21 01:33 Hgb 13.6 g/dl (14.0-18.0) L 11/03/21 01:33 Hct 41.3 % (40.1-51.0) 11/03/21 01:33 MCV 96.7 fL (80.0-100.0) 11/03/21 01:33 MCH 31.9 pg (25.0-34.0) 11/03/21 01:33 MCHC 32.9 g/dL (32.0-36.0) 11/03/21 01:33 RDW Std Deviation 49.2 fL (36.4-46.3) H 11/03/21 01:33 RDW Coeff of Joo 13.9 % (11.5-14.5) 11/03/21 01:33 Plt Count 304 K/uL (130-400) 11/03/21 01:33 MPV 10.7 fL (9.4-12.4) 11/03/21 01:33 Immature Gran % (Auto) 0.3 % 11/01/21 15:11 Neut % (Auto) 76.0 % 11/01/21 15:11 Lymph % (Auto) 10.5 % 11/01/21 15:11 [place] % (Auto) 8.1 % 11/01/21 15:11 Eos % (Auto) 4.5 % 11/01/21 15:11 Baso % (Auto) 0.6 % 11/01/21 15:11 Neut # (Auto) 6.90 K/uL (1.4-6.5) H 11/01/21 15:11 Lymph # (Auto) 0.95 K/uL (1.2-3.4) L 11/01/21 15:11 [place] # (Auto) 0.74 K/uL (0.24-0.82) 11/01/21 15:11 Eos # (Auto) 0.41 K/uL (0-0.50) 11/01/21 15:11 Baso # (Auto) 0.05 K/uL (0-0.2) 11/01/21 15:11 Immature Gran # (Auto) 0.03 K/uL (0.00-0.02) H 11/01/21 15:11 PT 18.3 Seconds (9.0-12.0) H 11/04/21 08:11 POC INR 3.0 (0.9-1.1) H 11/01/21 15:44 INR 1.8 (0.9-1.1) H 11/04/21 08:11 APTT 43.3 Seconds (21.0-31.0) H 11/01/21 15:11 PTT Ratio 1.6 11/01/21 15:11 Sodium 143 mmol/L (136-145) 11/04/21 08:11 Potassium 3.7 mmol/L (3.5-5.1) 11/04/21 08:11 Chloride 110 mmol/L (98-107) H 11/04/21 08:11 Carbon Dioxide 27 mmol/L (21-32) 11/04/21 08:11 Anion Gap 6 (3-11) 11/04/21 08:11 BUN 25 mg/dl (6-23) H 11/04/21 08:11 Creatinine 1.23 mg/dl (0.6-1.4) 11/04/21 08:11 Est Cr Clr Drug Dosing 45.5 ml/min 11/04/21 08:11 Est GFR ( Amer) 62.5 ml/min 11/04/21 08:11 Est GFR (Non-Af Amer) 54.0 ml/min 11/04/21 08:11 BUN/Creatinine Ratio 20.3 (10-20) H 11/04/21 08:11 Glucose 83 mg/dl (70-99(Fasting)) 11/04/21 08:11 POC Glucose 85 mg/dl (70-99) 11/03/21 01:18 Estimat Average Glucose 111 mg/dl 11/02/21 06:22 Hemoglobin A1c 5.5 % (4.5-5.6) 11/02/21 06:22 Calcium 9.4 mg/dl (8.5-10.1) 11/04/21 08:11 Magnesium 1.9 mg/dl (1.7-2.4) 11/02/21 06:22 Total Bilirubin 1.1 mg/dl (0.2-1.0) H 11/01/21 15:11 AST 16 U/L (13-39) 11/01/21 15:11 ALT 11 U/L (7-52) 11/01/21 15:11 Alkaline Phosphatase 47 U/L (34-104) 11/01/21 15:11 Troponin I High Sens 16.6 pg/ml (0-20) 11/04/21 08:11 Total Protein 6.4 gm/dl (6.0-8.3) 11/01/21 15:11 Albumin 4.0 gm/dl (3.4-5.0) 11/01/21 15:11 Globulin 2.4 gm/dl (2.5-4.0) L 11/01/21 15:11 Albumin/Globulin Ratio 1.7 (0.9-2) 11/01/21 15:11 Triglycerides 50 mg/dl (0-150) 11/02/21 06: Cholesterol 103 mg/dl (0-200) 11/02/21 06:22 LDL Cholesterol, Calc 46 mg/dl 11/02/21 06:22 VLDL Cholesterol, Calc 10 mg/dl (0-30) 11/02/21 06:22 HDL Cholesterol 47 mg/dl 11/02/21 06:22 Cholesterol/HDL Ratio 2.2 (0-5) 11/02/21 06:22 TSH 2.125 uIu/ml (0.300-4.500) 11/03/21 01:33 Urine Color Yellow 11/03/21 05:10 Urine Appearance Clear (Clear) 11/03/21 05:10 Urine pH 6.0 (4.5-7.5) 11/03/21 05:10 Ur Specific [place] 1.011 (1.000-1.030) 11/03/21 05:10 Urine Protein Trace (Negative) H 11/03/21 05:10 Urine Glucose (UA) Negative (Negative) 11/03/21 05:10 Urine Ketones Negative (Negative) 11/03/21 05:10 Urine Blood Trace (Negative) H 11/03/21 05:10 Urine Nitrite Negative (Negative) 11/03/21 05:10 Urine Bilirubin Negative (Negative) 11/03/21 05:10 Urine Urobilinogen Negative (Negative) 11/03/21 05:10 Ur Leukocyte Esterase Negative (Negative) 11/03/21 05:10 Urine WBC (Auto) 0 /hpf (0-5) 11/03/21 05:10 Urine RBC (Auto) 0-4 /hpf (0-4) 11/03/21 05:10 U Hyaline Cast (Auto) 1-5 /lpf (0-5) 11/03/21 05:10 U Epithel Cells (Auto) 0-5 /lpf (0-5) 11/03/21 05:10 Urine Bacteria (Auto) Negative (Negative) 11/03/21 05:10 SARS-CoV-2, RNA, NAAT NEGATIVE (NEGATIVE) 11/01/21 15:26 Blood Type A Positive 11/01/21 15:35 Antibody Screen NEGATIVE 11/01/21 15:35 Impressions Chest X-Ray 11/01/21 15:08 XR chest 1V portable CLINICAL HISTORY: Stroke Like Symptoms TECHNIQUE: Single frontal radiograph of the chest was obtained. Comparison: Comparison is made to chest radiograph 10/16/2010 FINDINGS: No lines and tubes are seen. Calcified aortic knob is seen. The lungs are clear. No evidence of pleural effusion or pneumothorax. IMPRESSION: No acute chest disease. ACT 112: Negative or not required by law. Electronically signed by: Adrián Leiva M.D. 11/01/2021 5:[address] 11/01/21 15:[address] OF THE BRAIN; CT ANGIOGRAM OF THE BRAIN; CT ANGIOGRAM OF THE NECK CLINICAL HISTORY: Strokelike symptoms. COMPARISON STUDY: No priors. TECHNIQUE: Unenhanced axial CT scan of the brain is performed. Subsequently, following the IV administration of 109 of Optiray 300, CT angiogram of the head and neck was performed from the aortic arch to the vertex. Images are reviewed in the axial, sagittal, and coronal planes. 3-D MIPS images are created and assessed. IV contrast was administered without complication. All measurements were calculated based on NASCET criteria. A dose lowering technique was utilized adhering to the principles of ALARA. CT DOSE: 1809.15 mGy.cm FINDINGS: Brain parenchyma: There is age-related involutional change noting moderate subcortical and periventricular microangiopathic disease. There is no hemorrhage, mass effect, or evidence of acute territorial ischemia by CT criteria. There is no evidence of enhancing mass lesion on the angiogram phase images. The ventricles, sulci, and cisterns are prominent secondary to change. Wood-white matter differentiation is preserved. No extra-axial fluid collection is seen. Thoracic aorta: There is atherosclerotic calcification of the thoracic aorta. Visualized portions of the thoracic aorta are normal in caliber. The aortic arch demonstrates standard 3-vessel anatomy. Right carotid arterial system: The right common carotid artery is widely patent, as is the right external carotid artery. There is advanced atherosclerotic plaque in the carotid bulb. There is approximately 50% focal stenosis of the proximal internal carotid artery located 1.8 cm above the bifurcation as seen on image #20 and 82. The mid and distal portions of the right internal carotid artery are patent. Left carotid arterial system: The left common carotid artery is widely patent, as are the left internal and external carotid arteries. Advanced calcified plaque is seen in the carotid bulb. Vertebral arteries: There is at least mild stenosis at the origin of the right vertebral artery. The vertebral arteries are otherwise widely patent bilaterally noting left-sided dominance. The right vertebral artery terminates as the PICA. Subclavian arteries: Widely patent bilaterally. Intracranial vasculature: There is atherosclerotic calcification of the cavernous carotid and vertebral arteries. The internal carotid arteries are patent at the skull base, as are the anterior and middle cerebral arteries bilaterally. There are large bilateral posterior communicating arteries comment origin of the left posterior cerebral artery. There is a diminutive right T1 segment. The right A1 segment is also diminutive. The vertebrobasilar system and posterior cerebral arteries are widely patent. The left vertebral artery is dominant. There is no aneurysm, high-grade stenosis, or focal vessel cut off seen throughout the intracranial circulation. Jugular veins: Patent bilaterally. Dural sinuses: Patent. Lung apices: Emphysematous change is noted in the upper lobes. Upper lobe lung parenchyma is otherwise clear as imaged. Soft tissues: The visualized pharyngeal soft tissues are normal in appearance noting angiographic phase technique. The oropharyngeal airway appears widely patent. The salivary and thyroid glands are normal in appearance. No cervical lymphadenopathy is seen. Skeletal structures: The skeletal structures are osteopenic. The calvarium appears intact. The cervical spine is maintained noting multilevel spondylosis. No lytic or blastic lesion is seen. Orbits: The bony orbits are intact. Orbital contents are normal as visualized. There are bilateral ocular lens implants. Sinuses and mastoids: There is complete opacification of the lungs maxillary sinus. Thickening and sclerosis of the sinus wall indicates chronicity. Mild mucosal thickening is noted in the left ethmoid sinuses, the frontal sinuses, in the right maxillary antrum. The mastoid air cells are well pneumatized. IMPRESSION: 1 There is no hemorrhage, mass effect, or evidence of acute territorial ischemia by CT criteria. 2. Unremarkable CT angiogram of the brain. 3. Atherosclerotic plaque causes approximately 50% focal stenosis of the proximal right internal carotid artery. 4. There is at least mild focal stenosis at the origin of the right vertebral artery. 5. Otherwise unremarkable CT angiogram of the neck. 6. Emphysema. 7. Paranasal sinus disease as above. ACT 112: Negative or not required by law. Electronically signed by: Wesley Villa M.D. 11/01/2021 3:38 PM Head CTA 11/01/21 15:[address] OF THE BRAIN; CT ANGIOGRAM OF THE BRAIN; CT ANGIOGRAM OF THE NECK CLINICAL HISTORY: Strokelike symptoms. COMPARISON STUDY: No priors. TECHNIQUE: Unenhanced axial CT scan of the brain is performed. Subsequently, following the IV administration of 109 of Optiray 300, CT angiogram of the head and neck was performed from the aortic arch to the vertex. Images are reviewed in the axial, sagittal, and coronal planes. 3-D MIPS images are created and assessed. IV contrast was administered without complication. All measurements were calculated based on NASCET criteria. A dose lowering technique was utilized adhering to the principles of ALARA. CT DOSE: 1809.15 mGy.cm FINDINGS: Brain parenchyma: There is age-related involutional change noting moderate subcortical and periventricular microangiopathic disease. There is no hemorrhage, mass effect, or evidence of acute territorial ischemia by CT criteria. There is no evidence of enhancing mass lesion on the angiogram phase images. The ventricles, sulci, and cisterns are prominent secondary to change. Wood-white matter differentiation is preserved. No extra-axial fluid collection is seen. Thoracic aorta: There is atherosclerotic calcification of the thoracic aorta. Visualized portions of the thoracic aorta are normal in caliber. The aortic arch demonstrates standard 3-vessel anatomy. Right carotid arterial system: The right common carotid artery is widely patent, as is the right external carotid artery. There is advanced atherosclerotic plaque in the carotid bulb. There is approximately 50% focal stenosis of the proximal internal carotid artery located 1.8 cm above the bifurcation as seen on image #20 and 82. The mid and distal portions of the right internal carotid artery are patent. Left carotid arterial system: The left common carotid artery is widely patent, as are the left internal and external carotid arteries. Advanced calcified plaque is seen in the carotid bulb. Vertebral arteries: There is at least mild stenosis at the origin of the right vertebral artery. The vertebral arteries are otherwise widely patent bilaterally noting left-sided dominance. The right vertebral artery terminates as the PICA. Subclavian arteries: Widely patent bilaterally. Intracranial vasculature: There is atherosclerotic calcification of the cavernous carotid and vertebral arteries. The internal carotid arteries are patent at the skull base, as are the anterior and middle cerebral arteries bilaterally. There are large bilateral posterior communicating arteries comment origin of the left posterior cerebral artery. There is a diminutive right T1 segment. The right A1 segment is also diminutive. The vertebrobasilar system and posterior cerebral arteries are widely patent. The left vertebral artery is dominant. There is no aneurysm, high-grade stenosis, or focal vessel cut off seen throughout the intracranial circulation. Jugular veins: Patent bilaterally. Dural sinuses: Patent. Lung apices: Emphysematous change is noted in the upper lobes. Upper lobe lung parenchyma is otherwise clear as imaged. Soft tissues: The visualized pharyngeal soft tissues are normal in appearance noting angiographic phase technique. The oropharyngeal airway appears widely patent. The salivary and thyroid glands are normal in appearance. No cervical lymphadenopathy is seen. Skeletal structures: The skeletal structures are osteopenic. The calvarium appears intact. The cervical spine is maintained noting multilevel spondylosis. No lytic or blastic lesion is seen. Orbits: The bony orbits are intact. Orbital contents are normal as visualized. There are bilateral ocular lens implants. Sinuses and mastoids: There is complete opacification of the lungs maxillary sinus. Thickening and sclerosis of the sinus wall indicates chronicity. Mild mucosal thickening is noted in the left ethmoid sinuses, the frontal sinuses, in the right maxillary antrum. The mastoid air cells are well pneumatized. IMPRESSION: 1 There is no hemorrhage, mass effect, or evidence of acute territorial ischemia by CT criteria. 2. Unremarkable CT angiogram of the brain. 3. Atherosclerotic plaque causes approximately 50% focal stenosis of the proximal right internal carotid artery. 4. There is at least mild focal stenosis at the origin of the right vertebral artery. 5. Otherwise unremarkable CT angiogram of the neck. 6. Emphysema. 7. Paranasal sinus disease as above. ACT 112: Negative or not required by law. Electronically signed by: Wesley Villa M.D. 11/01/2021 3:38 PM Neck CTA 11/01/21 15:[address] OF THE BRAIN; CT ANGIOGRAM OF THE BRAIN; CT ANGIOGRAM OF THE NECK CLINICAL HISTORY: Strokelike symptoms. COMPARISON STUDY: No priors. TECHNIQUE: Unenhanced axial CT scan of the brain is performed. Subsequently, following the IV administration of 109 of Optiray 300, CT angiogram of the head and neck was performed from the aortic arch to the vertex. Images are reviewed in the axial, sagittal, and coronal planes. 3-D MIPS images are created and assessed. IV contrast was administered without complication. All measurements were calculated based on NASCET criteria. A dose lowering technique was utilized adhering to the principles of ALARA. CT DOSE: 1809.15 mGy.cm FINDINGS: Brain parenchyma: There is age-related involutional change noting moderate subcortical and periventricular microangiopathic disease. There is no hemorrhage, mass effect, or evidence of acute territorial ischemia by CT criteria. There is no evidence of enhancing mass lesion on the angiogram phase images. The ventricles, sulci, and cisterns are prominent secondary to change. Wood-white matter differentiation is preserved. No extra-axial fluid collection is seen. Thoracic aorta: There is atherosclerotic calcification of the thoracic aorta. Visualized portions of the thoracic aorta are normal in caliber. The aortic arch demonstrates standard 3-vessel anatomy. Right carotid arterial system: The right common carotid artery is widely patent, as is the right external carotid artery. There is advanced atherosclerotic plaque in the carotid bulb. There is approximately 50% focal stenosis of the proximal internal carotid artery located 1.8 cm above the bifurcation as seen on image #20 and 82. The mid and distal portions of the right internal carotid artery are patent. Left carotid arterial system: The left common carotid artery is widely patent, as are the left internal and external carotid arteries. Advanced calcified plaque is seen in the carotid bulb. Vertebral arteries: There is at least mild stenosis at the origin of the right vertebral artery. The vertebral arteries are otherwise widely patent bilaterally noting left-sided dominance. The right vertebral artery terminates as the PICA. Subclavian arteries: Widely patent bilaterally. Intracranial vasculature: There is atherosclerotic calcification of the cavernous carotid and vertebral arteries. The internal carotid arteries are patent at the skull base, as are the anterior and middle cerebral arteries bilaterally. There are large bilateral posterior communicating arteries comment origin of the left posterior cerebral artery. There is a diminutive right T1 segment. The right A1 segment is also diminutive. The vertebrobasilar system and posterior cerebral arteries are widely patent. The left vertebral artery is dominant. There is no aneurysm, high-grade stenosis, or focal vessel cut off seen throughout the intracranial circulation. Jugular veins: Patent bilaterally. Dural sinuses: Patent. Lung apices: Emphysematous change is noted in the upper lobes. Upper lobe lung parenchyma is otherwise clear as imaged. Soft tissues: The visualized pharyngeal soft tissues are normal in appearance noting angiographic phase technique. The oropharyngeal airway appears widely patent. The salivary and thyroid glands are normal in appearance. No cervical lymphadenopathy is seen. Skeletal structures: The skeletal structures are osteopenic. The calvarium appears intact. The cervical spine is maintained noting multilevel spondylosis. No lytic or blastic lesion is seen. Orbits: The bony orbits are intact. Orbital contents are normal as visualized. There are bilateral ocular lens implants. Sinuses and mastoids: There is complete opacification of the lungs maxillary sinus. Thickening and sclerosis of the sinus wall indicates chronicity. Mild mucosal thickening is noted in the left ethmoid sinuses, the frontal sinuses, in the right maxillary antrum. The mastoid air cells are well pneumatized. IMPRESSION: 1 There is no hemorrhage, mass effect, or evidence of acute territorial ischemia by CT criteria. 2. Unremarkable CT angiogram of the brain. 3. Atherosclerotic plaque causes approximately 50% focal stenosis of the proximal right internal carotid artery. 4. There is at least mild focal stenosis at the origin of the right vertebral artery. 5. Otherwise unremarkable CT angiogram of the neck. 6. Emphysema. 7. Paranasal sinus disease as above. ACT 112: Negative or not required by law. Electronically signed by: Wesley Villa M.D. 11/01/2021 3:38 PM Brain MRI 11/01/21 18:24 MR brain wo con HISTORY: 81 years-old Male stroke like symptoms acute nausea with vomiting and strokelike symptoms COMPARISON: CT head, CTA head and neck studies of same day TECHNIQUE: Multiplanar multisequence MRI of the brain was obtained without the use of IV contrast. 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 Study is motion degraded. Very few scattered foci of restricted diffusion involving the left frontal and parietal lobes. The largest focus within the anterior left frontal lobe measures 1.6 cm and the largest focus within the left parietal lobe measures 2.1 cm. These areas demonstrate intermediate to decreased signal on ADC map. The left frontal lobe. This demonstrates increased T2/FLAIR signal. No acute or subacute territorial infarct. Midline structures are unremarkable. Degenerative changes of the cervical spine. Partially empty sella. No acute intracranial hemorrhage, midline shift, abnormal extra-axial collection, hydrocephalus or intracranial mass. Age-related involutional changes. Moderate to extensive T2/FLAIR hyperintense foci noted throughout the white matter. Cerebral venous sinuses and major arterial flow voids appear generally patent. Prior bilateral lens repair. The skull and soft tissues are unremarkable. Paranasal sinus disease includes complete opacification of the left maxillary sinus. IMPRESSION: 1. Motion degraded exam. There are small scattered acute to subacute appearing infarcts of the left frontal and parietal lobes measuring up to 2.1 cm. 2. No acute intracranial hemorrhage or midline shift. 3. Involutional changes with moderate to extensive chronic microvascular ischemic disease. ACT 112: Negative or not required by law. The above report was generated using voice recognition software. It may contain grammatical, syntax or spelling errors. Electronically signed by: Shabbir Tapia M.D. 11/01/2021 11:14 PM Ordered Studies 11/01/21 15:08 CT angio head w con Stat CT angio neck with con Stat CT head/brain wo con Stat 11/01/21 18:24 MR brain wo con Routine Hospital Course (1) Stroke-like symptoms: (2) Weakness: (3) HTN (hypertension): (4) HLD (hyperlipidemia): (5) Paroxysmal atrial fibrillation: Plan Patient is an 81 yr male presented with history of RUE weakness and an episode of vomiting. Acute CVA -MRI Brain:There are small scattered acute to subacute appearing infarcts of the left frontal and parietal lobes measuring up to 2.1 cm. No acute intracranial hemorrhage or midline shift. Involutional changes with moderate to extensive chronic microvascular ischemic disease. -Head/Neck CTA:There is no hemorrhage, mass effect, or evidence of acute territorial ischemia by CT criteria. Unremarkable CT angiogram of the brain. Atherosclerotic plaque causes approximately 50% focal stenosis of the proximal right internal carotid artery. There is at least mild focal stenosis at the origin of the right vertebral artery. Otherwise unremarkable CT angiogram of the neck. Emphysema. Paranasal sinus disease as above. --ECHO: Atrial fibrillation with ventricular rates in the range of 50 to 60s during the echocardiogram study. Left atrium is moderately dilated. Aortic valve sclerosis moderate, without significant aortic valvular stenosis. Moderate aortic regurgitation. There is moderate mitral regurgitation. Pulmonary artery systolic pressure is estimated to be 30 to 35 mmHg. EF 55 to 60%. No ASD, could not assess for PFO. 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 Continue thiamine, folic acid LBBB Patient denies angina symptoms Troponins negative Echo no wall motion abnormality Appreciate cardiology input Paroxysmal atrial fibrillation Coumadin discontinued Stated on Eliquis DVT Px: Eliquis Code Status: Full Code Disposition Home Total Time Total Time Spent Total Time Spent (In Minutes): 45 minutes Discharge Plan Discharge Items Patient Disposition: Home - Self-Care Reason For Visit: WEAKNESS Discharge Diagnosis: Acute stroke Paroxysmal atrial fibrillation Left bundle branch block Delirium--Resolved Activity: Per Instructions section Exercise/Sports: Gradually increase as tolerated Non-emergency contact: Primary Care Provider and Neurologist Call non-emergency contact if: you have any medication questions, your symptoms worsen, your pain is concerning for you and you have a fever Follow-up/Referrals: Shaan Kim, DO [Primary Care Provider] - Diet: Heart Healthy Diet Texture: Easy to Chew Addtl Attending Provider Instructions: Follow-up with your primary care physician Dr. Magalis Hackett on 11/05/21 at 3:15 PM as scheduled Follow-up with your neurologist Dr. Marquis Sreedhar in 4 weeks as advised --- Monitor your blood pressure regularly as advised. Discussed with your primary care physician for further adjustment of your blood pressure medications. Medication Changes: --- Your Coumadin is discontinued and your started on apixaban 5 mg twice a day --- You are also started on aspirin 81 mg daily. ---Quit drinking alcohol as advised. Seek immediate medical attention if your symptoms reoccur or worsen Please take all medications as instructed on discharge list below. Please call if you have any questions or problems. You can reach a [facility] hospitalist on duty at [facility] 24 hours a day by calling [phone] Risk Factors for Stroke: You can reduce your chances of stroke by working with your medical provider to adopt a healthy lifestyle. Some specific ways to lower your chance of stroke are: * If you are a smoker, now is the time to stop smoking cigarettes * If you are diabetic, improve the control of your blood sugars * Avoid excessive amounts of alcohol * Control high blood pressure * Lose weight if you are overweight * Be sure to lead an active lifestyle * Eat a healthy diet low in salt, cholesterol and fat You should know about other risk factors for stroke that you are unable to control. These include: * Age 55 years or older * Male gender * Certain racial groups: , or / * Family History of Stroke, Mini stroke or Heart Attack * Sickle Cell Disease Follow Up: It is important for you to keep your follow up appointments with your medical provider. Who to Call and When: Medical Emergencies: Call 911 immediately if you experience any of the following warning signs and symptoms of Stroke: * Sudden numbness or weakness of the face, arm or leg, especially on one side of the body * Sudden confusion, trouble speaking or understanding * Sudden trouble seeing in one or both eyes * Sudden trouble walking, dizziness, loss of balance or coordination * Sudden severe headache with no cause Do not delay calling 911 if you experience any warning signs or symptoms of a stroke. Delay in seeking medical attention may affect what treatments can be given to you. . Pending Studies at Discharge: No Stand-Alone Forms: Medications to Prevent Stroke, [facility], Smoking Cessation Medications and DC Order Prescriptions: New Eliquis 5 mg Tablet 5 mg PO BID Qty: 60 0RF aspirin 81 mg Tablet,Delayed Release (Dr/Ec) 81 mg PO QAM Qty: 30 1RF folic acid 1 mg Tablet 1 mg PO QAM Qty: 30 0RF thiamine HCl (vitamin B1) 100 mg Tablet 100 mg PO QAM Qty: 30 0RF Continued atorvastatin 20 mg Tablet 20 mg PO PM polyethylene glycol 3350 [Miralax] 17 gram Powder In Packet 17 g PO DAILY PRN (Reason: Constipation) docusate sodium [Col-Rite] 100 mg Capsule 100 mg PO BID PRN (Reason: Constipation) omega 4-rec-fjp-fish oil [Fish Oil] 1,000 mg (120 mg-180 mg) Capsule 1 cap PO DAILY amlodipine 10 mg tablet 10 mg PO DAILY losartan 50 mg tablet 50 mg PO DAILY Discontinued warfarin 5 mg Tablet 5 mg PO UD Rx Instructions: SPOUSE STATES THEY RECEIVED PREOP INSTRUCTIONS FROM [facility] Discharge Orders: Discharge Order (Routine); Ordered 11/04/21 Ordered By: Fabian Perez Admission Data Admit Date/Time: 11/01/21 17:24 Attending Provider: Fabian Perez Admit Provider: Rosendo Alarcon Primary Care Provider: Shaan Kim Other Providers: Rosendo Alarcon ; Marquis Eli ; Buddy Solorio
--- NOTE | 2021-11-04 14:43 | Pharmacy Report ---
Pharmacist Stroke Counseling - Date of Service November 04, 2021 - Scope: Pharmacy has been consulted to provide medication discharge counseling for this patient admitted with ischemic stroke as per the Pharmacist Discharge Counseling for Stroke Patients Protocol. - Medications on Discharge: Home Medications Medication Instructions Recorded Confirmed atorvastatin 20 mg tablet 20 mg PO PM 03/17/18 11/01/21 docusate sodium 100 mg capsule 100 mg PO BID PRN Constipation 03/17/18 11/01/21 (Col-Rite) omega 8-svr-css-fish oil 1,000 mg 1 cap PO DAILY 03/17/18 11/01/21 (120 mg-180 mg) capsule (Fish Oil) polyethylene glycol 3350 17 gram 17 g PO DAILY PRN Constipation 03/17/18 11/01/21 oral powder packet (Miralax) amlodipine 10 mg tablet 10 mg PO DAILY 11/01/21 11/01/21 losartan 50 mg tablet 50 mg PO DAILY 11/01/21 11/01/21 New Rx's Medication Instructions Recorded apixaban 5 mg tablet (Eliquis) 5 mg PO BID #60 tabs 11/04/21 aspirin 81 mg tablet,delayed 81 mg PO QAM #30 tabs 11/04/21 release folic acid 1 mg tablet 1 mg PO QAM #30 tabs 11/04/21 thiamine HCl (vitamin B1) 100 mg 100 mg PO QAM #30 tabs 11/04/21 tablet - Action: The above medications, specifically ones for stroke treatment/prophylaxis, have been reviewed in detail with the patient field representative prior to discharge. This includes indication, common adverse reactions, drug interactions, and medication administration. Medication counseling has been employed using the teach-back method to ensure understanding. - Outcome: The patient field representative has demonstrated understanding of the medications. Additional comments: -spoke with patient's via telephone as patient is very hard of hearing. -patient requested that I speak wit his because she manages medications -requested provider place reason for non-high intensity in chart Thank you for allowing pharmacy to be involved in the care of this patient. Please call [phone] with any additional questions
--- NOTE | 2021-11-04 16:12 | Electrocardiogram Report ---
Test Reason : Blood Pressure : / mmHG Vent. Rate : 045 BPM Atrial Rate : 045 BPM P-R Int : 000 ms QRS Dur : 142 ms QT Int : 520 ms P-R-T Axes : 000 -67 -28 degrees QTc Int : 449 ms Atrial fibrillation with slow ventricular response Left axis deviation Left bundle branch block Abnormal ECG When compared with ECG of 03-NOV-2021 01:21, T wave inversion now evident in Inferior leads Confirmed by Lemuel Storey ([id number]) on 11/04/2021 4:12:25 PM Referred By: REFERRED SELF Confirmed By:Lemuel Storey
== END 2021-11-04 15:29 | disposition home or self-care (01) | DRG 65 ==
LOC: ED 15:00 → 2W 17:24 → SUATTDRO 17:24 → 2W 18:03

== ENCOUNTER 2022-03-24 11:10 | Inpatient (IN) ==
[2022-03-24] MEDS ORDERED: SODIUM CHLORIDE 0.9% 500 ML IV STA (11:27)
--- NOTE | 2022-03-24 11:29 | Emergency Department Note ---
Impression & Plan Elevated troponin, Acute delirium ADMIT ED Provider Note HPI: The patient is an 81-year-old gentleman with history of dementia, chronic atrial fibrillation, on anticoagulation with Eliquis, presents emergency department after a fall at home. History is limited on arrival secondary to the patient's dementia, he is able to tell me his name and he is able to tell me that he is in the hospital. He does not have any focal deficits on arrival. He does have an abrasion to the left side of his forehead but otherwise no outward evidence of trauma is noted. Patient is in no acute distress on my initial evaluation, he is hemodynamically stable on arrival. ROS: - Per HPI *Outpatient medications and allergy history reviewed. *Pertinent external medical records reviewed. 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 On arrival here to the ED the patient is alert to verbal stimuli, he is able to tell me that he is in the hospital. Patient was also seen here in the ED last night. Patient's son later arrived at the bedside to provide further history, states that they were recently traveled back from [facility] where they were staying for the past 3 months, patient has done this intermittently with his over the past several years. They do spend about 6 months out of the year in [place]. Upon returning home, son states that during the flight the patient seemed to be more confused than he normally is. He does have some baseline dementia. When he returned home the patient was confused to the point where he did not recognize his or his son, he attempted to flee home and was ultimately brought to the ED last night. He was ultimately discharged from his stay last night with Ativan for his delirium, he took 1 dose last night around 3 AM and then tried to get up from his wheelchair earlier today and fell. CT imaging of the head does not show any evidence of acute intracranial bleedin g, chest x-ray does not show any evidence of traumatic abnormalities. Patient remained stable while here in the ED. EKG appears to show a pattern of slow atrial fibrillation with a rate of 51. Patient's blood pressure has been slightly hypertensive here in the ED. Troponin elevated mildly at 45. Patient does not complain of any chest pain. No evidence of ST elevation DE on EKG. Lab work otherwise does not show any critical findings. He does have a mild leukocytosis, urinalysis is pending at the time of admission, at this time I have low suspicion for systemic infection given stable vital signs and history of dementia currently favors as the source of his altered mentation. I discussed the patient's presentation with his son, at this time patient's son states that this is some progressive worsening of the patient's underlying dementia, he does not feel that he is able to adequately take care of the patient in the apartment complex in which they live, his mother also helps but c urrently is recovering from a broken hip. He does not feel that the patient is safe to return home, given that this is his second presentation within the past 24 hours I do feel that he is appropriate for admission, further evaluation for elevated troponin and worsening delirium and dementia, and possible placement. Case was discussed with the on-call midlevel provider for the [facility] ist service and the patient was placed for admission in stable condition. Disposition discussion held by myself with: Patient and son at the bedside Diagnosis: 1. Elevated troponin level 2. Dementia 3. Delirium, acute 4. Leukocytosis, nonspecific, mild 5. Left forehead abrasion 6. Benzodiazepine use in setting of altered mentation Disposition: Admission Mark Mcclendon DO Emergency Medicine Past Med/Surg History Medical History Aortic aneurysm HAS BEEN MONITORED FOR PAST 5 YEARS. PT ALSO FOLLOWS WITH [facility]. Atrial fibrillation MOST RECENT EKG 02/22/18 (SEE EMR) History of intestinal obstruction 2010. S/P BOWEL RESECTION. HLD (hyperlipidemia) HTN (hypertension) Hypertension Paroxysmal atrial fibrillation Stroke-like symptoms Weakness Surgical History History of bowel resection History of cataract extraction with lens replacement B/L Social History Smoking Status: Unknown if ever smoked Cigarettes Per Day: SOCIAL CIGARETTE FOR PAST 7 YEARS; Second Hand Exposure: No; Hx Alcohol Use: Yes Alcohol type: beer Hx Substance Use: No Preferred Language: Polish Communication Ability: Effective Procurement Officer Required: No Beliefs That Will Affect Care: None marital status: Current Living Situation: Spouse Current Living Situation Comment: with Feels Safe at Home: Yes Assistive Devices: None Allergies Allergies Allergy/AdvReac Type Severity Reaction Status Date / Time No Known Allergies Allergy Verified 11/01/21 16:02 Home Meds Home Medications Medication Instructions Recorded Confirmed atorvastatin 20 mg tablet 20 mg PO PM 03/17/18 11/01/21 docusate sodium 100 mg capsule 100 mg PO BID PRN Constipation 03/17/18 11/01/21 (Col-Rite) omega 8-tcx-rcy-fish oil 1,000 mg 1 cap PO DAILY 03/17/18 11/01/21 (120 mg-180 mg) capsule (Fish Oil) polyethylene glycol 3350 17 gram 17 g PO DAILY PRN Constipation 03/17/18 11/01/21 oral powder packet (Miralax) amlodipine 10 mg tablet 10 mg PO DAILY 11/01/21 11/01/21 losartan 50 mg tablet 50 mg PO DAILY 11/01/21 11/01/21 Previous Rx's Medication Instructions Recorded apixaban 5 mg tablet (Eliquis) 5 mg PO BID #60 tabs 11/04/21 aspirin 81 mg tablet,delayed 81 mg PO QAM #30 tabs 11/04/21 release folic acid 1 mg tablet 1 mg PO QAM #30 tabs 11/04/21 thiamine HCl (vitamin B1) 100 mg 100 mg PO QAM #30 tabs 11/04/21 tablet Results & Data (ED) Vital Signs Vital Signs - 24 hr 03/24/22 11:33 03/24/22 11:43 Temperature 36.5 C Temperature Source Axillary Pulse Rate 52 L 62 Respiratory Rate 17 18 Respiratory Effort / Characteristics Non-Labored Spontaneous Respiratory Depth Normal Blood Pressure 179/86 H Blood Pressure Mean 117 Pulse Oximetry 94 96 Oxygen Delivery Method Room Air Room Air Sepsis Recent Fever Within 48 Hours No Sepsis New/Unexplained Change in Mental Status N/A Sepsis Action Taken by Nursing No Action Required Laboratory Data 03/24/22 11:35 03/24/22 11:35 Lab Results 03/24/22 03/24/22 03/24/22 Range/Units 11:30 11:35 11:35 WBC 11.80 H (4.8-10.8) K/ul RBC 4.51 L (4.70-6.10) M/uL Hgb 14.3 (14.0-18.0) g/dl Hct 43.3 (42.0-52.0) % MCV 96.0 (80.0-100.0) fL MCH 31.7 (25.0-34.0) pg MCHC 33.0 (32.0-36.0) g/dL RDW Std Deviation 50.0 H (36.4-46.3) fL RDW Coeff of Joo 14.3 (11.5-14.5) % Plt Count 378 (130-400) K/uL MPV 10.7 (9.4-12.4) fL Immature Gran % (Auto) 0.5 % Neut % (Auto) 72.9 % Lymph % (Auto) 12.4 % Hardeman % (Auto) 10.2 % Eos % (Auto) 3.5 % Baso % (Auto) 0.5 % Neut # (Auto) 8.61 H (1.40-6.50) K/uL Lymph # (Auto) 1.46 (1.2-3.4) K/uL Hardeman # (Auto) 1.20 H (0.11-0.59) K/uL Eos # (Auto) 0.41 (0-0.50) K/uL Baso # (Auto) 0.06 (0-0.2) K/uL Immature Gran # (Auto) 0.06 (0.01-0.20) K/uL PT 11.5 (9.0-12.0) Seconds INR 1.1 (0.9-1.1) APTT 35.3 H (21.0-31.0) Seconds PTT Ratio 1.3 Sodium (136-145) mmol/L Potassium (3.5-5.1) mmol/L Chloride (98-107) mmol/L Carbon Dioxide (21-32) mmol/L Anion Gap (3-11) BUN (6-23) mg/dl Creatinine (0.6-1.4) mg/dl Est Cr Clr Drug Dosing Est GFR ( Amer) ml/min Est GFR (Non-Af Amer) ml/min BUN/Creatinine Ratio (10-20) Glucose (70-99(Fasting)) mg/dl Calcium (8.5-10.1) mg/dl Total Bilirubin (0.2-1.0) mg/dl AST (13-39) U/L ALT (7-52) U/L Alkaline Phosphatase (34-104) U/L Troponin I High Sens (0-20) pg/ml Total Protein (6.0-8.3) gm/dl Albumin (3.4-5.0) gm/dl Globulin (2.5-4.0) gm/dl Albumin/Globulin Ratio (0.9-2) Lipase (11-82) U/L SARS-CoV-2, RNA, NAAT NEGATIVE (NEGATIVE) 03/24/22 Range/Units 11:35 WBC (4.8-10.8) K/ul RBC (4.70-6.10) M/uL Hgb (14.0-18.0) g/dl Hct (42.0-52.0) % MCV (80.0-100.0) fL MCH (25.0-34.0) pg MCHC (32.0-36.0) g/dL RDW Std Deviation (36.4-46.3) fL RDW Coeff of Ojo (11.5-14.5) % Plt Count (130-400) K/uL MPV (9.4-12.4) fL Immature Gran % (Auto) % Neut % (Auto) % Lymph % (Auto) % Hardeman % (Auto) % Eos % (Auto) % Baso % (Auto) % Neut # (Auto) (1.40-6.50) K/uL Lymph # (Auto) (1.2-3.4) K/uL Hardeman # (Auto) (0.11-0.59) K/uL Eos # (Auto) (0-0.50) K/uL Baso # (Auto) (0-0.2) K/uL Immature Gran # (Auto) (0.01-0.20) K/uL PT (9.0-12.0) Seconds INR (0.9-1.1) APTT (21.0-31.0) Seconds PTT Ratio Sodium 143 (136-145) mmol/L Potassium 3.8 (3.5-5.1) mmol/L Chloride 110 H (98-107) mmol/L Carbon Dioxide 29 (21-32) mmol/L Anion Gap 4 (3-11) BUN 23 (6-23) mg/dl Creatinine 1.06 (0.6-1.4) mg/dl Est Cr Clr Drug Dosing Not Reportable Est GFR ( Amer) 74.9 ml/min Est GFR (Non-Af Amer) 64.6 ml/min BUN/Creatinine Ratio 21.7 H (10-20) Glucose 89 (70-99(Fasting)) mg/dl Calcium 9.5 (8.5-10.1) mg/dl Total Bilirubin 1.2 H (0.2-1.0) mg/dl AST 16 (13-39) U/L ALT 9 (7-52) U/L Alkaline Phosphatase 53 (34-104) U/L Troponin I High Sens 45.7 H (0-20) pg/ml Total Protein 6.5 (6.0-8.3) gm/dl Albumin 4.0 (3.4-5.0) gm/dl Globulin 2.5 (2.5-4.0) gm/dl Albumin/Globulin Ratio 1.6 (0.9-2) Lipase 10 L (11-82) U/L SARS-CoV-2, RNA, NAAT (NEGATIVE) Administered Medications Discontinued Medications Sodium Chloride (Nss) 500 mls @ 999 mls/hr IV .Q31M STA Stop: 03/24/22 11:57 Last Admin: 03/24/22 12:18 Dose: 999 mls/hr Documented By: [facility] Imaging Data Radiologist's Impression: Chest X-Ray 03/24/22 11:27 XR chest 1V portable HISTORY: Chest pain, nonspecific COMPARISON: Chest 11/01/2021. FINDINGS: No pneumothorax. No pleural effusions. The heart remains enlarged. No focal lung consolidations to suggest a pneumonia. No evidence for pulmonary edema. Calcifications again noted within the aortic knob. There is a skin fold overlying the right peripheral lung. IMPRESSION: Stable cardiomegaly. ACT 112: Negative or not required by law. Electronically signed by: Virgilio Lamb M.D. 03/24/2022 11:[address] 03/24/22 11:27 CT OF THE HEAD WITHOUT CONTRAST CLINICAL HISTORY: fall, on OAC COMPARISON STUDY: Head CT and MRI of the brain November 01, 2021. CT DOSE: 614.27 mGy.cm TECHNIQUE: Helical axial images of the head were obtained without IV contrast. Automated exposure control was utilized for the study. A dose lowering technique was utilized adhering to the principles of ALARA. FINDINGS: No acute intracranial hemorrhage, midline shift or mass effect is present. Ventricular system is stable. Basal cisterns are patent. There are no extra axial collections. White matter hypodensity suggests small vessel disease. No acute calvarial fracture is noted although the vertex was not imaged on this examination. Chronic opacification of the left maxillary sinus is unchanged. Frontal and left ethmoid sinus opacification is also unchanged. IMPRESSION: 1. No acute intracranial findings. 2. No acute calvarial fracture identified. ACT 112: Negative or not required by law. Electronically signed by: Gino Barriga M.D. 03/24/2022 11:59 AM Discharge Plan Visit Data Chief Complaint: Fall Stated Complaint: FALL, ALOC ED Provider: Mark Mcclendon Discharge Problem: Elevated troponin, Acute delirium Forms Stand Alone Forms: My [facility] Prescriptions Prescriptions: No Action atorvastatin 20 mg Tablet 20 mg PO PM polyethylene glycol 3350 [Miralax] 17 gram Powder In Packet 17 g PO DAILY PRN (Reason: Constipation) docusate sodium [Col-Rite] 100 mg Capsule 100 mg PO BID PRN (Reason: Constipation) omega 5-wce-nsc-fish oil [Fish Oil] 1,000 mg (120 mg-180 mg) Capsule 1 cap PO DAILY amlodipine 10 mg tablet 10 mg PO DAILY losartan 50 mg tablet 50 mg PO DAILY Eliquis 5 mg Tablet 5 mg PO BID Qty: 60 0RF aspirin 81 mg Tablet,Delayed Release (Dr/Ec) 81 mg PO QAM Qty: 30 1RF folic acid 1 mg Tablet 1 mg PO QAM Qty: 30 0RF thiamine HCl (vitamin B1) 100 mg Tablet 100 mg PO QAM Qty: 30 0RF Referrals Referrals: Shaan Kim DO [Primary Care Provider] -
--- NOTE | 2022-03-24 11:51 | XRay Report ---
XR chest 1V portable HISTORY: Chest pain, nonspecific COMPARISON: Chest 11/01/2021. FINDINGS: No pneumothorax. No pleural effusions. The heart remains enlarged. No focal lung consolidat ions to suggest a pneumonia. No evidence for pulmonary edema. Calcifications again noted within the a ortic knob. There is a skin fold overlying the right peripheral lung. IMPRESSION: Stable cardiomegaly. ACT 112: Negative or not required by law. Electronically signed by: Virgilio Lamb M.D. 03/24/2022 11:49 AM
[2022-03-24 11:56] LABS: Basophils # (auto) 0.06 K/uL (0-0.2); Basophils % (auto) 0.5 %; Eosinophils # (auto) 0.41 K/uL (0-0.50); Eosinophils % (auto) 3.5 %; Hematocrit (blood only) 43.3 % (42.0-52.0); Hemoglobin 14.3 g/dl (14.0-18.0); Immature Granulocytes # (auto) 0.06 K/uL (0.01-0.20); Immature Granulocytes % (auto) 0.5 %; Lymphocytes # (auto) 1.46 K/uL (1.2-3.4); Lymphocytes % (auto) 12.4 %; Mean Corpuscular Hemoglobin 31.7 pg (25.0-34.0); Mean Platelet Volume 10.7 fL (9.4-12.4); Monocytes % (auto) 10.2 %; Neutrophils # (auto) 8.61 K/uL (1.40-6.50); Neutrophils % (auto) 72.9 %; Platelet Count 378 K/uL (130-400); RDW Coefficient of Variation 14.3 % (11.5-14.5); Red Blood Count 4.51 M/uL (4.70-6.10)
--- NOTE | 2022-03-24 12:00 | CT Scan Report ---
CT OF THE HEAD WITHOUT CONTRAST CLINICAL HISTORY: fall, on OAC COMPARISON STUDY: Head CT and MRI of the brain November 01, 2021. CT DOSE: 614.27 mGy.cm TECHNIQUE: Helical axial images of the head were obtained without IV contrast. Automated exposure con trol was utilized for the study. A dose lowering technique was utilized adhering to the principles o f ALARA. FINDINGS: No acute intracranial hemorrhage, midline shift or mass effect is present. Ventricular syst em is stable. Basal cisterns are patent. There are no extra axial collections. White matter hypodensi ty suggests small vessel disease. No acute calvarial fracture is noted although the vertex was not im aged on this examination. Chronic opacification of the left maxillary sinus is unchanged. Frontal and left ethmoid sinus opacification is also unchanged. IMPRESSION: 1. No acute intracranial findings. 2. No acute calvarial fracture identified. ACT 112: Negative or not required by law. Electronically signed by: Gino Barriga M.D. 03/24/2022 11:59 AM
[2022-03-24 12:23] LABS: Troponin I High Sensitivity 45.7 pg/ml (0-20)
[2022-03-24 12:25] LABS: Anion Gap 4 (3-11); Bilirubin,Total 1.2 mg/dl (0.2-1.0); Calcium 9.5 mg/dl (8.5-10.1); Carbon Dioxide 29 mmol/L (21-32); Chloride 110 mmol/L (98-107); Potassium 3.8 mmol/L (3.5-5.1); Sodium 143 mmol/L (136-145)
[2022-03-24 12:29] LABS: INR 1.1 (0.9-1.1); Partial Thromboplastin Ratio 1.3; Partial Thromboplastin Time 35.3 Seconds (21.0-31.0); Prothrombin Time 11.5 Seconds (9.0-12.0)
[2022-03-24 12:31] LABS: Alanine Aminotransferase 9 U/L (7-52); Albumin Globulin Ratio 1.6 (0.9-2); Alkaline Phosphatase 53 U/L (34-104); Aspartate Aminotransferase 16 U/L (13-39); BUN Creatinine Ratio 21.7 (10-20); Blood Urea Nitrogen 23 mg/dl (6-23); Est GFR (African American) 74.9 ml/min; Est GFR (Non-African American) 64.6 ml/min; Globulin 2.5 gm/dl (2.5-4.0); Glucose 89 mg/dl (70-99(Fasting)); Lipase 10 U/L (11-82); Total Protein 6.5 gm/dl (6.0-8.3)
[2022-03-24] MEDS ORDERED: ALUMINUM/MAGNESIUM SUSP 30 ML UDC PO PRN (12:53)
[2022-03-24] MEDS ORDERED: ACETAMINOPHEN 325 MG TAB PO PRN (12:53)
[2022-03-24] MEDS ORDERED: ONDANSETRON INJ 2 MG/ML 2 ML VIAL IV PRN (12:53)
[2022-03-24] MEDS ORDERED: MAGNESIUM HYDROXIDE SUSP 30 ML UDC PO PRN (12:53)
[2022-03-24] MEDS ORDERED: POLYETHYLENE (MIRALAX) 17 GM PACK PO PRN (12:53)
--- NOTE | 2022-03-24 12:58 | History & Physical Report ---
Date of Service March 24, 2022 Assessment & Plan (1) Acute delirium: (2) Dementia: (3) Paroxysmal atrial fibrillation: (4) Weakness: (5) HTN (hypertension): (6) HLD (hyperlipidemia): Plan 81 y/o with dementia with acute altered mental status change/acute delirium. Returned last night from 3 month trip from [facility] with his son and . Eloped last evening; came to ED received Ativan pack and was discharged. R/O infectious origin. Suspect UTI. MRI if no improvement based on UA results. PT/OT. Zyprexa. Acute delirium: Dementia with behavioral disturbances: Agitation: -Acute change in mental status over past 3 days. -Frequent urination noted, not baseline -At baseline, able to feed and dress himself -Does not appear toxic: afebrile, WBC 11.80 -Head CT negative -CXR negative -Troponin 45.7; trend x1; does not appear ACS rather suspect ischemic demand. -UA pending via straight cath -Zyprexa 5 mg ODT once for agitation -Consider brain MRI if US is negative and no improvement of AMS. -PT/OT ordered for likely placement. Paroxysmal atrial fibrillation: -takes Eliquis. Was taking Coumadin but had a stroke in November 2021 and was transitioned to Eliquis. -AF on monitor; rate controlled. 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 -Does not appear focal Disposition: PCP: Dr. Kim Code Status: DNR/DNI VTE Prophylaxis: Teds/SCDs for now; on Eloquis A total of 87 minutes was spent with greater than 50% of that time personally reviewing all current laboratory work and diagnostic imaging studies obtained in the ED. Additionally, I was able to review the patients past medication reconciliation and history with direct visualization in the patients chart. Included in the time above, a portion of that time was spent assessing the patient while discussing and collaborating with specialists, if necessary, and making medical decisions regarding orders to be placed. All of the aforementioned completed while collaborating with Dr. Jackson for a full treatment plan. Please see her addendum for further details. History of Present Illness Chief Complaint: altered mental status Primary Care Provider: Shaan Kim DO Mr. Elise is an 81 year old male that presented to the [facility] ED with AMS. He was recently on a vacation visiting his grandchildren with his son and and returned last evening. Over the past 3 days he was noted to have increased frequency of urination and worsening altered mental status. He does have dementia that has progressively worsened over the past 3 months since he suffered a subacute stroke on November 2021. At baseline, he is able to set up his own breakfast, eat independently, and requires minimal assistance with bathing/dressing. Last night after they returned home from [facility], he did elope from his apartment and the police brought him home. At that time, the family did bring him in to the hospital. He was given a Ativan pack and discharged. He returned this morning after trying to stand from his wheelchair and he sustained a fall, hitting his head, suffering abrasions on the left side of his face. Additional PMH includes HTN, HLD, carotid stenosis, pAF (on Eloquis), H/O CVA in 12/14. He was on Coumadin for pAF but experienced the stroke while therapeutic, so was transitioned to Eloquis. CXR negative, Head CT negative for stroke, ICH, or midline shift. Patient is a smoker 1/2 ppd and does drink 4-5 glasses of wine quite regularly but does not have any withdraw effects if he misses a few days of drinking. He does, at baseline, take daily Thiamine and Folic Acid. Slight leukocytosis WBC 11.8. Tr oponin 45.7; will trend but suspect ischemic demand rather ACS. Also, patient is focal with gaze, do not suspect acute stroke at this time, but would consider MRI if no improvement. Patient AAOx1 and is unable to identify his son Karel at the bedside which is an acute change. He is unable to provide a reliable ROS and all ROS received from the patients son at bedside. Patient agitated at bedside, attempting to pull at all devices and get out of bed. Patients recently had a hip replacement and has noted that care at home has progressively become more challenging. The son does live in the downstairs apartment at their house but does work FT and travels as well. There was conversation about a niece moving in with them at some point, but the family agrees that additional help or placement conversation is warranted. Suspect UTI based on exam and ROS. PT/OT is ordered for possible placement evaluation. Patient will be admitted for further evaluation and management. Please see A/P for further details. Allergies Allergy/AdvReac Type Severity Reaction Status Date / Time No Known Allergies Allergy Verified 11/01/21 16:02 Home Medications Medication Instructions Recorded Confirmed Type atorvastatin 20 mg tablet 20 mg PO PM 03/17/18 03/24/22 History docusate sodium 100 mg capsule 100 mg PO BID PRN Constipation 03/17/18 03/24/22 History (Col-Rite) omega 8-xoq-yqx-fish oil 1,000 mg 1 cap PO DAILY 03/17/18 03/24/22 History (120 mg-180 mg) capsule (Fish Oil) polyethylene glycol 3350 17 gram 17 g PO DAILY PRN Constipation 03/17/18 03/24/22 History oral powder packet (Miralax) amlodipine 10 mg tablet 10 mg PO DAILY 11/01/21 03/24/22 History losartan 50 mg tablet 50 mg PO DAILY 11/01/21 03/24/22 History apixaban 5 mg tablet (Eliquis) 5 mg PO BID #60 tabs 11/04/21 03/24/22 Rx aspirin 81 mg tablet,delayed 81 mg PO QAM #30 tabs 11/04/21 03/24/22 Rx release folic acid 1 mg tablet 1 mg PO QAM #30 tabs 11/04/21 03/24/22 Rx thiamine HCl (vitamin B1) 100 mg 100 mg PO QAM #30 tabs 11/04/21 03/24/22 Rx tablet Past Med/Surg History Medical History Aortic aneurysm HAS BEEN MONITORED FOR PAST 5 YEARS. PT ALSO FOLLOWS WITH [facility]. Atrial fibrillation MOST RECENT EKG 02/22/18 (SEE EMR) History of intestinal obstruction 2010. S/P BOWEL RESECTION. HLD (hyperlipidemia) HTN (hypertension) Hypertension Paroxysmal atrial fibrillation Stroke-like symptoms Weakness Surgical History History of bowel resection History of cataract extraction with lens replacement B/L Social History Smoking Status: Current every day smoker Cigarettes Per Day: SOCIAL CIGARETTE FOR PAST 7 YEARS; Second Hand Exposure: No; Do You Dip or Chew Tobacco: No; Tobacco Cessation Education Requested by Patient: No Hx Alcohol Use: Yes Alcohol type: beer Hx Substance Use: No Preferred Language: Nepalese Communication Ability: Impaired Communication Ability Comment: pt is [facility] Alterations Supervisor Required: No Beliefs That Will Affect Care: None marital status: Current Living Situation: Spouse and Family Current Living Situation Comment: with Other Information That Helps Us Care for You: No Feels Safe at Home: Yes Safety Concerns: Feels Safe At This Time Assistive Devices: Hearing Aid - Bilateral and Walker Review of Systems Review of Systems: Unobtainable due to cognitive status Physical Exam Physical Exam: Neuro: AAOx4, PERRLA, no aphagia, memory changes, CNII-XII grossly intact HEENT: head normocephalic, moist mucus membranes CV: Irreguarly irregular (-) M/G/R, (-) edema, cap refill < 3 seconds Resp: Lungs CTA in all hurley. On RA GI: Abdomen S/NT/ND, Ax4 bowel sounds, (-) CVA tenderness Musculoskeletal: 5/5 B/L UE strength, 5/5 B/L LE strength. No gait disturbance Skin: (-) rashes , (-) erythema. Left forehead abrasion. Psych: euthymic mood Results & Data Results & Data ([facility]) Vital Signs (Past 12 Hours) Vital Signs Temp Pulse Resp BP Pulse Ox O2 Del Method 03/24/22 11:43 62 18 96 Room Air 03/24/22 11:33 36.5 C 52 L 17 179/86 H 94 Room Air Laboratory Results Short CBC 03/24/22 Range/Units 11:35 WBC 11.80 H (4.8-10.8) K/ul Hgb 14.3 (14.0-18.0) g/dl Hct 43.3 (42.0-52.0) % Plt Count 378 (130-400) K/uL BMP 03/24/22 11:35 Sodium 143 Potassium 3.8 Chloride 110 H Carbon Dioxide 29 BUN 23 Creatinine 1.06 Glucose 89 Calcium 9.5 Liver Function 03/24/22 Range/Units 11:35 Total Bilirubin 1.2 H (0.2-1.0) mg/dl AST 16 (13-39) U/L ALT 9 (7-52) U/L Alkaline Phosphatase 53 (34-104) U/L Albumin 4.0 (3.4-5.0) gm/dl Diagnostic Findings Chest X-Ray 03/24/22 11:27 XR chest 1V portable HISTORY: Chest pain, nonspecific COMPARISON: Chest 11/01/2021. FINDINGS: No pneumothorax. No pleural effusions. The heart remains enlarged. No focal lung consolidations to suggest a pneumonia. No evidence for pulmonary edema. Calcifications again noted within the aortic knob. There is a skin fold overlying the right peripheral lung. IMPRESSION: Stable cardiomegaly. ACT 112: Negative or not required by law. Electronically signed by: Virgilio Lamb M.D. 03/24/2022 11:[address] 03/24/22 11:27 CT OF THE HEAD WITHOUT CONTRAST CLINICAL HISTORY: fall, on OAC COMPARISON STUDY: Head CT and MRI of the brain November 01, 2021. CT DOSE: 614.27 mGy.cm TECHNIQUE: Helical axial images of the head were obtained without IV contrast. Automated exposure control was utilized for the study. A dose lowering technique was utilized adhering to the principles of ALARA. FINDINGS: No acute intracranial hemorrhage, midline shift or mass effect is present. Ventricular system is stable. Basal cisterns are patent. There are no extra axial collections. White matter hypodensity suggests small vessel disease. No acute calvarial fracture is noted although the vertex was not imaged on this examination. Chronic opacification of the left maxillary sinus is unchanged. Frontal and left ethmoid sinus opacification is also unchanged. IMPRESSION: 1. No acute intracranial findings. 2. No acute calvarial fracture identified. ACT 112: Negative or not required by law. Electronically signed by: Gino Barriga M.D. 03/24/2022 11:59 AM Code Status & VTE Plan VTE Prophylaxis Plan VTE Prophylaxis will be ordered: Yes Supervising Physician Co-Signing Physician Notes Patient was seen and examined. Chart reviewed. Agree with assessment and plan as above. Current confusion likely delirium in setting of recent travel. CT head unremarkable. Monitor overnight, consider MRI brain if he remains confused
[2022-03-24] MEDS ORDERED: OLANZapine ZYDIS 5 MG ORALLY DIS. TAB PO ONE (13:41)
[2022-03-24] MEDS ORDERED: DOCUSATE SODIUM 100 MG CAP PO PRN (13:46)
--- NOTE | 2022-03-24 14:43 | Electrocardiogram Report ---
Test Reason : Blood Pressure : / mmHG Vent. Rate : 051 BPM Atrial Rate : 030 BPM P-R Int : 000 ms QRS Dur : 140 ms QT Int : 484 ms P-R-T Axes : 000 -59 106 degrees QTc Int : 446 ms Atrial fibrillation with slow ventricular response with premature ventricular or aberrantly conducted complexes Left axis deviation Left ventricular hypertrophy with QRS widening with repolarization abnormality Non-specific intra-ventricular conduction delay Septal infarct , age undetermined T wave abnormality, consider lateral ischemia Abnormal ECG When compared with ECG of 04-NOV-2021 05:34, Septal infarct is now Present Confirmed by Lemuel Storey ([id number]) on 03/24/2022 2:43:09 PM Referred By: REFERRED SELF Confirmed By:Lemuel Storey
[2022-03-24 14:52] LABS: Troponin I High Sensitivity 37.8 pg/ml (0-20)
[2022-03-24 14:53] LABS: Appearance Urine Clear (Clear); Bacteria Urine Automated Negative (Negative); Bilirubin Urine Negative (Negative); Blood Urine Trace (Negative); Cast Urine Automated 0 /lpf (0-5); Color Urine Yellow; Epithelial Cell Urine Auto 0-5 /lpf (0-5); Glucose Urine UA Negative (Negative); Ketones Urine Negative (Negative); Leukocyte Esterase Urine Negative (Negative); Nitrite Urine Negative (Negative); Protein Urine 1+ (Negative); RBC Urine Automated 0-4 /hpf (0-4); Specific Gravity Urine 1.011 (1.000-1.030); Urobilinogen Urine Negative (Negative); WBC Urine Automated 0 /hpf (0-5); pH Urine 6.5 (4.5-7.5)
[2022-03-24 15:05] LABS: Albumin Level 3.7 gm/dl (3.4-5.0); Bilirubin Direct 0.3 mg/dl (0-0.2); Bilirubin,Total 1.3 mg/dl (0.2-1.0)
[2022-03-24] MEDS: SODIUM CHLORIDE 0.9% 1000ML 1,000 ML IV SCH (16:25)
[2022-03-24] MEDS: FOLIC ACID 1 MG in SYRINGE 9.8 ML IV SCH (18:17)
[2022-03-24] MEDS ORDERED: POTASSIUM CHLORIDE PWD 20 MEQ PACK PO STA (21:08)
[2022-03-24] MEDS: APIXABAN 5 MG TABLET PO SCH (21:40)
[2022-03-24] MEDS: ATORVASTATIN 20 MG TAB PO SCH (21:40)
[2022-03-24] MEDS: NICOTINE 14 MG/24 HR PATCH TD SCH (21:40)
[2022-03-24] MEDS ORDERED: MAGNESIUM SULFATE / D5W 1 GM/100 ML BAG IV ONE (22:47)
[2022-03-25 08:13] LABS: Hematocrit (blood only) 40.6 % (42.0-52.0); Hemoglobin 13.4 g/dl (14.0-18.0); Mean Corpuscular Hemoglobin 31.7 pg (25.0-34.0); Mean Platelet Volume 10.4 fL (9.4-12.4); Platelet Count 362 K/uL (130-400); RDW Coefficient of Variation 14.1 % (11.5-14.5); RDW Standard Deviation 49.4 fL (36.4-46.3); Red Blood Count 4.23 M/uL (4.70-6.10); White Blood Count 9.11 K/ul (4.8-10.8)
[2022-03-25 08:29] LABS: BUN Creatinine Ratio 22.2 (10-20); Creatinine Clr Calc Pharmacy 62.2 ml/min; Est GFR (African American) 91.2 ml/min; Est GFR (Non-African American) 78.7 ml/min; Potassium 3.8 mmol/L (3.5-5.1)
[2022-03-25] MEDS: NICOTINE 14 MG/24 HR PATCH TD SCH (10:20)
[2022-03-25] MEDS: ASPIRIN 81 MG ECTAB PO SCH (10:21)
[2022-03-25] MEDS: amLODIPine BESYLATE 5 MG TAB PO SCH (10:21)
[2022-03-25] MEDS: THIAMINE HCL 100 MG in SYRINGE 9 ML IV SCH (10:22)
[2022-03-25] MEDS: APIXABAN 5 MG TABLET PO SCH ×2 (10:22→20:09)
[2022-03-25] MEDS: LOSARTAN POTASSIUM 50 MG TAB PO SCH (10:22)
[2022-03-25] MEDS: SODIUM CHLORIDE 0.9% 1000ML 1,000 ML IV SCH (10:23)
[2022-03-25] MEDS: FOLIC ACID 1 MG in SYRINGE 9.8 ML IV SCH (10:23)
--- NOTE | 2022-03-25 10:24 | XRay Report ---
XR chest 1V portable CLINICAL HISTORY: altered mental status COMPARISON STUDY: Chest radiograph March 24, 2022. FINDINGS: Skin folds project over the chest. Cardiomegaly is unchanged. No evidence for pulmonary calixto ma. No pneumothorax or pleural effusion is present. There are several old left rib fractures. No cons olidation is identified. IMPRESSION: No acute cardiopulmonary findings. No change in appearance of the chest. ACT 112: Negative or not required by law. Electronically signed by: Gino Barriga M.D. 03/25/2022 10:23 AM
--- NOTE | 2022-03-25 15:28 | Hospitalist Progress Note ---
Date of Service March 25, 2022 Assessment & Plan (1) Acute delirium: (2) Dementia: (3) Paroxysmal atrial fibrillation: (4) Weakness: (5) HTN (hypertension): (6) HLD (hyperlipidemia): Plan 81 y/o with dementia with acute altered mental status change/acute delirium. Returned last night from 3 month trip from [facility] with his son and . Eloped last evening; came to ED received Ativan pack and was discharged. R/O infectious origin. Suspect UTI. MRI if no improvement based on UA results. PT/OT. Zyprexa. Acute delirium: Dementia with behavioral disturbances: Agitation: -Acute change in mental status over past 3 days. -CT head showed no acute intracranial finding -UA did not showed any sign of UTI TSH and Ammonia level stable -Procalcitonin and WBC normalized today -Will get an MRI of the brain -PT/OT eval Paroxysmal atrial fibrillation: rate control - not on beta liset Continue Eliquis and aspirin Chronic Bradycardia Continue to be off beta liset Stable HTN: BP elevated on admission possible related to hospital setting Continue Amlodipine, [place] BP improved HLD: Continue Atorvastatin Alcohol use: Drinks 4-5 glasses of wine most days No history of alcohol withdrawal and DT in the past continue monitor closely for alcohol withdrawal Takes daily PO Thiamine and Folic Acid Currently on IV thiamine Counseling on alcohol cessation Tobacco use: Chronic smoker; 1/2 ppd Counseling on tobacco cessation Continue Nicotine patch 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 Currently on Eliquis and aspirin No focal neuro deficit on exam Disposition: Will discharge once medically stable Code Status: DNR/DNI VTE Prophylaxis: Teds/SCDs for now; on Eloquis Admission and Anticipated Discharge Date Admission Date: March 24, 2022 Subjective Pt was seen and examined for follow up of AMS Lying in bed with no acute distress Pt is very hard of hearing He said that he feels ok Denies any chest pain, palpitation, dizziness and SOB Review of Systems Review of Systems: All systems reviewed & are unremarkable except as noted in Subjective Physical Exam Physical Exam: General- No acute distress Head- atraumatic Eyes- PERRL, EOMI, ENT- +decrease hearing function Neck- supple, no JVD Lungs- +diminished BS Heart- Bradycardia, irregular Abdomen- normal bowel sounds, soft, nontender Extremities- no calf tenderness Neuro- awake, not oriented to time; PERRL, EOMI; no facial palsy; no dysarthria Skin- warm & dry Results & Data Results & Data ([facility]) Vital Signs (Past 12 Hours) Vital Signs Temp Pulse Pulse Resp BP Pulse Ox O2 Del Method 03/25/22 14:52 36.4 C L 45 L 18 158/69 H 97 Room Air 03/25/22 14:12 61 03/25/22 11:14 36.4 C L 50 L 20 157/79 H 96 Room Air 03/25/22 07:55 36.4 C L 46 L 164/69 H 96 Room Air 03/25/22 05:59 58 L 03/25/22 04:37 36.7 C 65 20 174/83 H 95 Room Air
[2022-03-25] MEDS: ATORVASTATIN 20 MG TAB PO SCH (20:09)
--- NOTE | 2022-03-26 07:12 | Magnetic Resonance Report ---
MRI OF THE BRAIN WITHOUT IV CONTRAST CLINICAL HISTORY: Change in mental status. COMPARISON STUDY: CT of the brain dated 03/24/2022. TECHNIQUE: MRI of the brain was performed utilizing various T1 and T2-weighted sequences in the axial , sagittal, and coronal planes. IV contrast was not administered for this examination. FINDINGS: Brain parenchyma: There is age-related involutional change noting moderate to advanced subcortical an d periventricular microangiopathic disease. There is no hemorrhage or mass effect. There is no restri cted diffusion to suggest acute ischemia. Wood-white matter differentiation is preserved. No extra-ax ial fluid collection is seen. The cerebellar tonsils are normal in configuration. Ventricles, sulci, and cisterns: Prominent significant positional change. Pituitary and sella: Partially empty sella is incidentally noted. Intracranial vasculature: Normal flow voids are maintained at the skull base. Orbits: The bony orbits are grossly intact. Orbital contents are normal in appearance noting bilatera l ocular lens implants. Sinuses and mastoids: There is near complete opacification of the left maxillary antrum and several l eft ethmoid sinuses. Mild mucosal thickening is noted in the right maxillary sinus and the left front al sinus. The metatarsals are clear. Calvarium: Unremarkable. Cervical cord: Partially visualized cervical spinal cord is normal in morphology and signal intensity . IMPRESSION: No acute intracranial abnormality. ACT 112: Negative or not required by law. Electronically signed by: Wesley Villa M.D. 03/26/2022 7:10 AM
--- NOTE | 2022-03-26 08:18 | Hospitalist Progress Note ---
Date of Service March 26, 2022 Assessment & Plan (1) Acute delirium: (2) Dementia: (3) Paroxysmal atrial fibrillation: (4) Weakness: (5) HTN (hypertension): (6) HLD (hyperlipidemia): Plan 81 y/o with dementia with acute altered mental status change/acute delirium. Returned last night from 3 month trip from [facility] with his son and . Eloped last evening; came to ED received Ativan pack and was discharged. R/O infectious origin or CVA. Acute delirium: Dementia with behavioral disturbances: Agitation: -Acute change in mental status over past 3 days. -CT head showed no acute intracranial finding -UA did not showed any sign of UTI -CXR negative TSH and Ammonia level stable -Procalcitonin and WBC normalized -MRI of the brain obtained - No acute intracranial abnormality. -PT/OT eval Paroxysmal atrial fibrillation: rate control - not on beta liset Continue Eliquis and aspirin Chronic Bradycardia Continue to be off beta liset Stable HTN: BP elevated on admission possible related to hospital setting Continue Amlodipine, Losartan BP improved HLD: Continue Atorvastatin Alcohol use: Drinks 4-5 glasses of wine most days No history of alcohol withdrawal and DT in the past continue monitor closely for alcohol withdrawal Takes daily PO Thiamine and Folic Acid Currently on IV thiamine Counseling on alcohol cessation Tobacco use: Chronic smoker; 1/2 ppd Counseling on tobacco cessation Continue Nicotine patch 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 Currently on Eliquis and aspirin No focal neuro deficit on exam Disposition: plan to DC to [facility] memory care unit/ vs. home w/ family Code Status: DNR/DNI VTE Prophylaxis:on Eliquis Admission and Anticipated Discharge Date Admission Date: March 24, 2022 Subjective Pt seen in follow up of AMS Lying in bed in no acute distress Pt is very hard of hearing Pt reports feeling well Denies any chest pain, palpitation, dizziness or shortness of breath Denies fever, chills, or [place] Currently he feels well, he knows that he is in the hospital - [facility], he knows he is in [place], he knows it's year 2022 He is able to answer all simple questions appropriately Update: In the afternoon pt wanted to walk in hallways and needed to be re- directed by nursing staff. Review of Systems Review of Systems: All systems reviewed & are unremarkable except as noted in Subjective Physical Exam Physical Exam: General- elderly M in no acute distress Head- atraumatic Eyes- PERRL, EOMI ENT- +decreased hearing function Neck- supple, no JVD Lungs- +diminished BS Heart- irregular Abdomen- normal bowel sounds, soft, nontender Extremities- no calf tenderness Neuro- awake, alert and oriented; PERRL, EOMI; no facial palsy; no dysarthria, moves extremities Skin- warm & dry Results & Data Results & Data ([facility]) Vital Signs (Past 12 Hours) Vital Signs Temp Pulse Pulse Resp BP BP Pulse Ox 03/26/22 07:59 37.3 C 62 18 195/75 H 96 03/25/22 22:06 59 L 03/26/22 04:00 36.6 C 70 24 193/74 H 97 03/25/22 22:32 36.8 C 45 L 18 163/71 H 99 O2 Del Method 03/26/22 07:59 Room Air 03/25/22 22:06 03/26/22 04:00 Room Air 03/25/22 22:32 Room Air Laboratory Results 03/26/22 03/25/22 03/25/22 Range/Units 07:58 07:41 07:41 Sodium 143 (136-145) mmol/L Potassium 3.8 (3.5-5.1) mmol/L Chloride 113 H (98-107) mmol/L Carbon Dioxide 24 (21-32) mmol/L Anion Gap 6 (3-11) BUN 20 (6-23) mg/dl Creatinine 0.90 (0.6-1.4) mg/dl Est Cr Clr Drug Dosing 62.2 ml/min Est GFR ( Amer) 91.2 ml/min Est GFR (Non-Af Amer) 78.7 ml/min BUN/Creatinine Ratio 22.2 H (10-20) Glucose 81 (70-99(Fasting)) mg/dl POC Glucose 98 (70-99) mg/dl Calcium 9.0 (8.5-10.1) mg/dl Magnesium 2.0 (1.7-2.4) mg/dl Procalcitonin < 0.05 (0-0.5) ng/ml Medications Administered Current Inpatient Medications Acetaminophen (Acetaminophen 325 Mg Tab) 650 mg PO Q4H PRN PRN Reason: Pain or Fever Stop: 04/23/22 12:52 Al Hydrox/Mg Hydrox/Simethicone (Aluminum/Magnesium Susp 30 Ml Udc) 15 ml PO Q4H PRN PRN Reason: Dyspepsia Stop: 04/23/22 12:52 Amlodipine Besylate (Amlodipine Besylate 5 Mg Tab) 10 mg PO DAILY [facility] Stop: 04/24/22 08:59 Last Admin: 03/25/22 10:21 Dose: 10 mg Apixaban (Apixaban 5 Mg Tablet) 5 mg PO BID [facility] Stop: 04/23/22 20:59 Last Admin: 03/25/22 20:09 Dose: 5 mg Aspirin (Aspirin 81 Mg Ectab) 81 mg PO QAM [facility] Stop: 04/24/22 08:59 Last Admin: 03/25/22 10:21 Dose: 81 mg Atorvastatin Calcium (Atorvastatin 20 Mg Tab) 20 mg PO PM [facility] Stop: 04/23/22 20:59 Last Admin: 03/25/22 20:09 Dose: 20 mg Docusate Sodium (Docusate Sodium 100 Mg Cap) 100 mg PO BID PRN PRN Reason: Constipation Stop: 04/23/22 13:45 Folic Acid 1 mg/ Syringe 10 mls @ 5 [facility] Stop: 04/23/22 15:59 Last Admin: 03/25/22 10:23 Dose: 5 mls/min Thiamine HCl 100 mg/ Syringe 10 mls @ 2 mls/min IV QAM [facility] Stop: 04/24/22 08:59 Last Admin: 03/25/22 10:22 Dose: 2 mls/min Losartan Potassium (Losartan Potassium 50 Mg Tab) 50 mg PO DAILY [facility] Stop: 04/24/22 08:59 Last Admin: 03/25/22 10:22 Dose: 50 mg Magnesium Hydroxide (Magnesium Hydroxide Susp 30 Ml Udc) 30 ml PO Q12H PRN PRN Reason: Constipation Stop: 04/23/22 12:52 Miscellaneous (Remove Nicoderm Patch) 1 each N/A DAILY@0859 [facility] Stop: 04/24/22 08:58 Last Admin: 03/25/22 10:24 Dose: 1 each Nicotine (Nicotine 14 Mg/24 Hr Patch) 14 [facility] Stop: 04/23/22 14:14 Last Admin: 03/25/22 10:20 Dose: 14 mg Ondansetron HCl (Ondansetron Inj 2 Mg/Ml 2 Ml Vial) 4 mg IV Q6H PRN PRN Reason: Nausea Stop: 04/23/22 12:52 Polyethylene Glycol (Polyethylene (Miralax) 17 Gm Pack) 17 gm PO DAILY PRN PRN Reason: Constipation Stop: 04/23/22 12:52
[2022-03-26] MEDS: amLODIPine BESYLATE 5 MG TAB PO SCH (08:32)
[2022-03-26] MEDS: APIXABAN 5 MG TABLET PO SCH ×2 (08:32→20:18)
[2022-03-26] MEDS: LOSARTAN POTASSIUM 50 MG TAB PO SCH (08:33)
[2022-03-26] MEDS: FOLIC ACID 1 MG in SYRINGE 9.8 ML IV SCH (08:33)
[2022-03-26] MEDS: ASPIRIN 81 MG ECTAB PO SCH (08:33)
[2022-03-26] MEDS: THIAMINE HCL 100 MG in SYRINGE 9 ML IV SCH (08:33)
[2022-03-26] MEDS: NICOTINE 14 MG/24 HR PATCH TD SCH (08:34)
[2022-03-26] MEDS: ATORVASTATIN 20 MG TAB PO SCH (20:18)
[2022-03-27] MEDS: amLODIPine BESYLATE 5 MG TAB PO SCH (08:00)
[2022-03-27] MEDS: LOSARTAN POTASSIUM 50 MG TAB PO SCH (08:00)
[2022-03-27] MEDS: ASPIRIN 81 MG ECTAB PO SCH (08:00)
[2022-03-27] MEDS: APIXABAN 5 MG TABLET PO SCH (08:00)
[2022-03-27] MEDS: FOLIC ACID 1 MG in SYRINGE 9.8 ML IV SCH (08:01)
[2022-03-27] MEDS: NICOTINE 14 MG/24 HR PATCH TD SCH (08:01)
[2022-03-27] MEDS: THIAMINE HCL 100 MG in SYRINGE 9 ML IV SCH (08:01)
--- NOTE | 2022-03-27 15:49 | Hospitalist Progress Note ---
Date of Service March 27, 2022 Assessment & Plan (1) Acute delirium: (2) Dementia: (3) Paroxysmal atrial fibrillation: (4) Weakness: (5) HTN (hypertension): (6) HLD (hyperlipidemia): Plan 81 y/o with dementia with acute altered mental status change/acute delirium. Returned last night from 3 month trip from [facility] with his son and . Eloped last evening; came to ED received Ativan pack and was discharged. R/O infectious origin or CVA. Acute delirium: Dementia with behavioral disturbances: Agitation: -Acute change in mental status over past 3 days. -CT head showed no acute intracranial finding -UA did not showed any sign of UTI -CXR negative TSH and Ammonia level stable -Procalcitonin and WBC normalized -MRI of the brain obtained - No acute intracranial abnormality. -PT/OT eval Patient is very much interested in leaving the hospital. Discussed in detail with the welfare case worker, and patient's . Plan to discharge home, with his family to care for him. Patient's obtained resources from the welfare case worker, in case she would like to pursue possible placement in memory care unit etc. PCP follow-up also arranged. Paroxysmal atrial fibrillation: rate control - not on beta liset Continue Eliquis and aspirin Chronic Bradycardia Continue to be off beta liset Stable HTN: BP elevated on admission possible related to hospital setting Continue Amlodipine, Losartan BP improved - at goal now HLD: Continue Atorvastatin Alcohol use: Drinks 4-5 glasses of wine most days No history of alcohol withdrawal and DT in the past continue monitor closely for alcohol withdrawal Takes daily PO Thiamine and Folic Acid Currently on IV thiamine Counseling on alcohol cessation Tobacco use: Chronic smoker; 1/2 ppd Counseling on tobacco cessation Continue Nicotine patch 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 I do have to write things down, for the patient to understand my questions, as he is very hard of hearing. Today he first answered that he is in [facility]. He also is very interested in leaving. One-on-one sitter present at the bedside. Later today, patient was code brice, as he was trying to leave the room. I discussed with patient's over the phone. She already talked to our welfare case worker, and was interested in taking patient home, and possibly have him placed later (such as memory unit )if difficult to manage at home. Discussed, that the patient's son can pick him up, and will discharge patient home, with his family to care for him. Patient's obtained all the resources from our welfare case worker. Discussed this with Idalia, our welfare case worker as well. Review of Systems Review of Systems: All systems reviewed & are unremarkable except as noted in Subjective Physical Exam Physical Exam: General- elderly M in no acute distress Head- atraumatic Eyes- PERRL, EOMI ENT- +decreased hearing function Neck- supple, no JVD Lungs- +diminished BS Heart- irregular Abdomen- normal bowel sounds, soft, nontender Extremities- no calf tenderness Neuro- awake, alert and oriented; PERRL, EOMI; no facial palsy; no dysarthria, moves extremities Skin- warm & dry Results & Data Results & Data ([facility]) Vital Signs (Past 12 Hours) Vital Signs Temp Pulse Resp BP BP Pulse Ox O2 Del Method 03/27/22 07:14 36.4 C L 84 18 139/72 97 Room Air 03/27/22 04:27 36.6 C 81 18 178/83 H 95 Room Air Medications Administered Current Inpatient Medications Acetaminophen (Acetaminophen 325 Mg Tab) 650 mg PO Q4H PRN PRN Reason: Pain or Fever Stop: 04/23/22 12:52 Al Hydrox/Mg Hydrox/Simethicone (Aluminum/Magnesium Susp 30 Ml Udc) 15 ml PO Q4H PRN PRN Reason: Dyspepsia Stop: 04/23/22 12:52 Amlodipine Besylate (Amlodipine Besylate 5 Mg Tab) 10 mg PO DAILY JORDAN Stop: 04/24/22 08:59 Last Admin: 03/27/22 08:00 Dose: 10 mg Apixaban (Apixaban 5 Mg Tablet) 5 mg PO BID JORDAN Stop: 04/23/22 20:59 Last Admin: 03/27/22 08:00 Dose: 5 mg Aspirin (Aspirin 81 Mg Ectab) [facility] [place]: 04/24/22 08:59 Last Admin: 03/27/22 08:00 Dose: 81 mg Atorvastatin Calcium (Atorvastatin 20 Mg Tab) 20 mg PO PM [facility] Stop: 04/23/22 20:59 Last Admin: 03/26/22 20:18 Dose: 20 mg Docusate Sodium (Docusate Sodium 100 Mg Cap) 100 mg PO BID PRN PRN Reason: Constipation Stop: 04/23/22 13:45 Folic Acid 1 mg/ Syringe 10 mls @ 5 mls/min IV [facility] Stop: 04/23/22 15:59 Last Admin: 03/27/22 08:01 Dose: 5 mls/min Thiamine HCl 100 mg/ Syringe 10 mls @ 2 mls/min IV [facility] Stop: 04/24/22 08:59 Last Admin: 03/27/22 08:01 Dose: 2 mls/min Losartan Potassium (Losartan Potassium 50 Mg Tab) 50 mg PO DAILY [facility] Stop: 04/24/22 08:59 Last Admin: 03/27/22 08:00 Dose: 50 mg Magnesium Hydroxide (Magnesium Hydroxide Susp 30 Ml Udc) 30 ml PO Q12H PRN PRN Reason: Constipation Stop: 04/23/22 12:52 Miscellaneous (Remove Nicoderm Patch) 1 each N/A DAILY@0859 [facility] Stop: 04/24/22 08:58 Last Admin: 03/27/22 08:02 Dose: 1 each Nicotine (Nicotine 14 Mg/24 Hr Patch) 14 mg TD [facility] Stop: 04/23/22 14:14 Last Admin: 03/27/22 08:01 Dose: 14 mg Ondansetron HCl (Ondansetron Inj 2 Mg/Ml 2 Ml Vial) 4 mg IV Q6H PRN PRN Reason: Nausea Stop: 04/23/22 12:52 Polyethylene Glycol (Polyethylene (Miralax) 17 Gm Pack) 17 gm PO DAILY PRN PRN Reason: Constipation Stop: 04/23/22 12:52
--- NOTE | 2022-03-27 16:03 | Discharge Summary ---
Date of Service March 27, 2022 Admission HPI Per Admitting Provider Mr. Elise is an 81 year old male that presented to the [facility] ED with AMS. He was recently on a vacation visiting his grandchildren with his son and and returned last evening. Over the past 3 days he was noted to have increased frequency of urination and worsening altered mental status. He does have dementia that has progressively worsened over the past 3 months since he suffered a subacute stroke on November 2021. At baseline, he is able to set up his own breakfast, eat independently, and requires minimal assistance with bathing/dressing. Last night after they returned home from [facility], he did elope from his apartment and the police brought him home. At that time, the family did bring him in to the hospital. He was given a Ativan pack and discharged. He returned this morning after trying to stand from his wheelchair and he sustained a fall, hitting his head, suffering abrasions on the left side of his face. Additional PMH includes HTN, HLD, carotid stenosis, pAF (on Eloquis), H/O CVA in 12/14. He was on Coumadin for pAF but experienced the stroke while therapeutic, so was transitioned to Eloquis. CXR negative, Head CT negative for stroke, ICH, or midline shift. Patient is a smoker 1/2 ppd and does drink 4-5 glasses of wine quite regularly but does not have any withdraw effects if he misses a few days of drinking. He does, at baseline, take daily Thiamine and Folic Acid. Slight leukocytosis WBC 11.8. Troponin 45.7; will trend but suspect ischemic demand rather ACS. Also, patient is focal with gaze, do not suspect acute stroke at this time, but would consider MRI if no improvement. Patient AAOx1 and is unable to identify his son Karel at the bedside which is an acute change. He is unable to provide a reliable ROS and all ROS received from the patients son at bedside. Patient agitated at bedside, attempting to pull at all devices and get out of bed. Patients recently had a hip replacement and has noted that care at home has progressively become more challenging. The son does live in the downstairs apartment at their house but does work FT and travels as well. There was conversation about a niece moving in with them at some point, but the family agrees that additional help or placement conversation is warranted. Suspect UTI based on exam and ROS. PT/OT is ordered for possible placement evaluation. Patient will be admitted for further evaluation and management. Please see A/P for further details. Admission Exam Per Admitting Provider Neuro: AAOx4, PERRLA, no aphagia, memory changes, CNII-XII grossly intact HEENT: head normocephalic, moist mucus membranes CV: Irreguarly irregular (-) M/G/R, (-) edema, cap refill < 3 seconds Resp: Lungs CTA in all hurley. On RA GI: Abdomen S/NT/ND, Ax4 bowel sounds, (-) CVA tenderness Musculoskeletal: 5/5 B/L UE strength, 5/5 B/L LE strength. No gait disturbance Skin: (-) rashes , (-) erythema. Left forehead abrasion. Psych: euthymic mood Principal Diagnosis Dementia, altered mental status Discharge Exam General- elderly M in no acute distress Head- atraumatic Eyes- PERRL, EOMI ENT- +decreased hearing function Neck- supple, no JVD Lungs- +diminished BS Heart- irregular Abdomen- normal bowel sounds, soft, nontender Extremities- no calf tenderness Neuro- awake, alert and oriented; PERRL, EOMI; no facial palsy; no dysarthria, moves extremities Skin- warm & dry Discharge Data Allergies Allergy/AdvReac Type Severity Reaction Status Date / Time No Known Allergies Allergy Verified 11/01/21 16:02 Consultations 03/24/22 12:45 ED Decision to Admit Stat Ordered Studies 03/24/22 11:27 CT head/brain wo con Stat FINDINGS: No acute intracranial hemorrhage, midline shift or mass effect is present. Ventricular system is stable. Basal cisterns are patent. There are no extra axial collections. White matter hypodensity suggests small vessel disease. No acute calvarial fracture is noted although the vertex was not imaged on this examination. Chronic opacification of the left maxillary sinus is unchanged. Frontal and left ethmoid sinus opacification is also unchanged. IMPRESSION: 1. No acute intracranial findings. 2. No acute calvarial fracture identified. 03/25/22 15:40 MRI Brain [MR brain wo con] Routine FINDINGS: Brain parenchyma: There is age-related involutional change noting moderate to advanced subcortical and periventricular microangiopathic disease. There is no hemorrhage or mass effect. There is no restricted diffusion to suggest acute ischemia. Wood-white matter differentiation is preserved. No extra-axial fluid collection is seen. The cerebellar tonsils are normal in configuration. Ventricles, sulci, and cisterns: Prominent significant positional change. Pituitary and sella: Partially empty sella is incidentally noted. Intracranial vasculature: Normal flow voids are maintained at the skull base. Orbits: The bony orbits are grossly intact. Orbital contents are normal in appearance noting bilateral ocular lens implants. Sinuses and mastoids: There is near complete opacification of the left maxillary antrum and several left ethmoid sinuses. Mild mucosal thickening is noted in the right maxillary sinus and the left frontal sinus. The metatarsals are clear. Calvarium: Unremarkable. Cervical cord: Partially visualized cervical spinal cord is normal in morphology and signal intensity. IMPRESSION: No acute intracranial abnormality. Hospital Course (1) Acute delirium: (2) Dementia: (3) Paroxysmal atrial fibrillation: (4) Weakness: (5) HTN (hypertension): (6) HLD (hyperlipidemia): Plan 81 y/o with dementia with acute altered mental status change/acute delirium. Returned last night from 3 month trip from [facility] with his son and . Eloped last evening; came to ED received Ativan pack and was discharged. R/O infectious origin or CVA. Acute delirium: Dementia with behavioral disturbances: Agitation: -Acute change in mental status over past 3 days. -CT head showed no acute intracranial finding -UA did not showed any sign of UTI -CXR negative TSH and Ammonia level stable -Procalcitonin and WBC normalized -MRI of the brain obtained - No acute intracranial abnormality. -PT/OT eval Patient is very much interested in leaving the hospital. Discussed in detail with the case folder, and patient's . Plan to discharge home, with his family to care for him. Patient's obtained resources from the case folder, in case she would like to pursue possible placement in memory care unit etc. PCP follow-up also arranged. Paroxysmal atrial fibrillation: rate control - not on beta liset Continue Eliquis and aspirin Chronic Bradycardia Continue to be off beta liset Stable HTN: BP elevated on admission possible related to hospital setting Continue Amlodipine, Losartan BP improved - at goal now HLD: Continue Atorvastatin Alcohol use: Drinks 4-5 glasses of wine most days No history of alcohol withdrawal and DT in the past continue monitor closely for alcohol withdrawal Takes daily PO Thiamine and Folic Acid Currently on IV thiamine Counseling on alcohol cessation Tobacco use: Chronic smoker; 1/2 ppd Counseling on tobacco cessation Continue Nicotine patch 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 Currently on Eliquis and aspirin No focal neuro deficit on exam Disposition: plan to DC home w/ family Total Time Total Time Spent Total Time Spent (In Minutes): 40 Discharge Plan Discharge Items Patient Disposition: Home - Self-Care Reason For Visit: CONFUSION Discharge Diagnosis: Dementia, altered mental status Activity: Per Instructions section Non-emergency contact: Primary Care Provider Call non-emergency contact if: you have any medication questions and your symptoms worsen Follow-up/Referrals: Magalis Hackett MD [Outside Practitioners] - (Date & Time 04/03/2022 11:20 AM Provider Magalis Hackett MD Department General Internal Medicine [facility] ) Diet: Heart Healthy Addtl Attending Provider Instructions: Follow-up with your primary care doctor, the appointment was scheduled for you for April 03. If you need any more information/resources, do not hesitate to contact case management in the hospital, or [facility] Liaison in the hospital. Pending Studies at Discharge: No Stand-Alone Forms: [facility], Smoking Cessation Medications and DC Order Prescriptions: Continued atorvastatin 20 mg Tablet 20 mg PO PM polyethylene glycol 3350 [Miralax] 17 gram Powder In Packet 17 g PO DAILY PRN (Reason: Constipation) docusate sodium [Col-Rite] 100 mg Capsule 100 mg PO BID PRN (Reason: Constipation) omega [id number] oil [Fish Oil] 1,000 mg (120 mg-180 mg) Capsule 1 cap PO DAILY amlodipine 10 mg tablet 10 mg PO DAILY losartan 50 mg tablet 50 mg PO DAILY Eliquis 5 mg Tablet 5 mg PO BID Qty: 60 0RF aspirin 81 mg Tablet,Delayed Release (Dr/Ec) 81 mg PO QAM Qty: 30 1RF folic acid 1 mg Tablet 1 mg PO QAM Qty: 30 0RF thiamine HCl (vitamin B1) 100 mg Tablet 100 mg PO QAM Qty: 30 0RF Discharge Orders: Discharge Order (Routine); Ordered 03/27/22 Ordered By: Dexter Ordonez Admission Data Admit Date/Time: 03/24/22 12:53 Attending Provider: Dexter Ordonez Admit Provider: Dennis Jackson Primary Care Provider: Shaan Kim Other Providers: Dennis Jackson ; Raghu Duggan
== END 2022-03-27 18:36 | disposition home or self-care (01) | DRG 884 ==
LOC: ED 11:10 → EDINP 12:53 → SUATTDRO 12:53 → 2N 15:27